=== PATIENT | male | born 1950 | race Two or more races ===

== ENCOUNTER 2016-06-09 05:22 | Inpatient (IN) | END 2016-06-15 21:15 | DRG 455 | DX: M51.37 Other intervertebral disc degeneration, lumbosacral region (principal); I10 Essential (primary) hypertension; E11.9 Type 2 diabetes mellitus without complications; Z86.73 Personal history of transient ischemic attack (TIA), and cerebral infarction without residual deficits; Z85.038 Personal history of other malignant neoplasm of large intestine; M43.16 Spondylolisthesis, lumbar region; K21.9 Gastro-esophageal reflux disease without esophagitis ==

== ENCOUNTER 2016-06-15 18:00 | Inpatient (IN) | payer OTHER ==
[~2016-06-15] VITALS: Ht 165.1 cm; Wt 90.2 kg
[~2016-06-15 18:00] MED LIST: ASPI-664 PO; ATOR40TA68 PO; HUMULIN SQ; HYDR50TA3 PO; LOSA50TA2 PO; LOSA50TA6 PO; METF1000 PO; METF500T PO; METO25TA7 PO; OMEP20CA16 PO; PANT40TA4 PO; REGULAR INSULIN; TRAM50TA2 PO
[2016-06-15 21:25] VITALS: Ht 165.1 cm; Wt 90.2 kg
[2016-06-15 21:30] VITALS: BP 126/70; RESP 20
[2016-06-15] MEDS: DOCUSATE SODIUM 100 MG CAP PO SCH (22:00)
[2016-06-15] MEDS: ATORVASTATIN 40 MG TAB PO SCH (22:00)
[2016-06-15] MEDS ORDERED: NALOXONE (0.4 MG/ML) INJ IV PRN (22:30)
[2016-06-15] MEDS ORDERED: ONDANSETRON 4 MG INJ IV PRN (22:30)
[2016-06-15] MEDS ORDERED: DEXTROSE 50% 50 ML SYRINGE IV PRN ×2 (22:30)
[2016-06-15] MEDS ORDERED: GLUCOSE GEL 15 GRAM TUBE PO PRN ×2 (22:30)
[2016-06-15] MEDS ORDERED: GLUCOSE GEL 15 GRAM TUBE BUCCAL PRN (22:30)
[2016-06-15] MEDS ORDERED: GLUCAGON 1 MG INJ IM PRN (22:30)
[2016-06-15] MEDS ORDERED: NACL 0.9% 3 ML SYG IV SCH (22:30)
[2016-06-15] MEDS ORDERED: PROCHLORPERAZINE 10 MG TAB PO PRN (22:30)
[2016-06-15] MEDS: METOPROLOL (XL) 25 MG TAB PO SCH (22:30)
[2016-06-15] MEDS: OXYCODONE/ACETAMINOPHEN (5/325) TAB PO PRN (23:14)
[2016-06-15] MEDS: INSULIN GLARGINE [LANtus] 3 ML PEN SC SCH (23:15)
[2016-06-15] MEDS ORDERED: BISACODYL 10 MG SUPP PR PRN (23:30)
[2016-06-15] MEDS ORDERED: LACTULOSE 30ML CUP PO PRN (23:30)
[2016-06-15] MEDS ORDERED: ACETAMINOPHEN 325 MG TAB PO PRN (23:30)
[2016-06-15] MEDS ORDERED: MAGNESIUM HYDROXIDE 30ML CUP PO PRN (23:30)
[2016-06-16 00:36] LABS: ADD UMIC NO; URINE BILIRUBIN (Dip) NEGATIVE (NEGATIVE); URINE BLOOD (Dip) NEGATIVE (NEGATIVE); URINE COLOR LT. YELLOW (YELLOW); URINE GLUCOSE (Dip) NEGATIVE (NEGATIVE); URINE KETONES (Dip) NEGATIVE (NEGATIVE); URINE LEUKOCYTE ESTERASE (Dip) NEGATIVE (NEGATIVE); URINE NITRITE (Dip) NEGATIVE (NEGATIVE); URINE TOTAL PROTEIN (Dip) NEGATIVE (NEGATIVE); URINE UROBILINOGEN (Dip) 1.0 E.U./dL (0.1-1.0)
[2016-06-16] MEDS: ACCUCHECK AT 2AM (Patients on SS coverage) XX SCH (02:00)
[2016-06-16] MEDS: OXYCODONE/ACETAMINOPHEN (5/325) TAB PO PRN ×5 (03:00→23:20)
[2016-06-16] MEDS: PANTOPRAZOLE (EC) 40 MG TAB PO SCH (06:33)
[2016-06-16 07:18] LABS: BASOPHILS % 0.3 % (0.0-2.0); EOSINOPHILS # 0.3 10^3/ul (0.0-0.5); EOSINOPHILS % 3.1 % (0.0-7.0); HEMATOCRIT 36.1 % (42.0-52.0); HEMOGLOBIN 12.4 g/dl (14.0-18.0); LYMPHOCYTES # 1.4 10^3/ul (0.8-2.9); LYMPHOCYTES % 13.3 % (15.0-51.0); MEAN CORPUSCULAR HGB CONC 34.2 g/dl (32.0-37.0); MEAN CORPUSCULAR VOLUME 93.5 fl (82.0-101.0); MEAN PLATELET VOLUME 6.6 fl (7.4-10.4); MONOCYTE # 0.8 10^3/ul (0.3-0.9); MONOCYTES % 7.8 % (0.0-11.0); NEUTROPHIL # 8.2 10^3/ul (1.6-7.5); NEUTROPHILS % 75.5 % (39.0-77.0); PLATELET COUNT 417 10^3/UL (140-440); RED BLOOD COUNT 3.86 10^6/ul (4.70-6.10); RED CELL DISTRIBUTION WIDTH 13.6 % (11.5-14.5); UNCORRECTED WBC 10.8 10^3/ul (4.8-10.8); WHITE BLOOD COUNT 10.8 10^3/ul (4.8-10.8)
[2016-06-16 07:21] LABS: CONDITION 1
[2016-06-16 07:35] LABS: ALBUMIN 3.2 g/dl (3.3-4.9)
[2016-06-16] MEDS: Insulin NOVOLOG SS MODERATE Algorithm (SS with meals and bedtime) SC SCH ×4 (07:35→21:00)
[2016-06-16 07:36] LABS: POTASSIUM 4.6 mmol/L (3.5-5.1)
[2016-06-16 07:38] LABS: ALBUMIN/GLOBULIN RATIO 1.06; BILIRUBIN,INDIRECT 0.6 mg/dl (0-1.1); BILIRUBIN,TOTAL 0.6 mg/dl (0.2-1.3); CREATININE 0.66 mg/dl (0.61-1.24); TOTAL PROTEIN 6.2 g/dl (6.1-8.1)
[2016-06-16 07:39] LABS: CALCIUM 9.2 mg/dl (8.4-10.2)
[2016-06-16 07:41] VITALS: BP 126/58; RESP 18
[2016-06-16] MEDS: metFORMIN 500 MG TAB PO SCH ×2 (08:02→17:27)
[2016-06-16] MEDS: DOCUSATE SODIUM 100 MG CAP PO SCH ×2 (08:05→20:34)
[2016-06-16] MEDS: INSULIN ASPART [NOVOLOG] 3 ML PEN SC SCH ×3 (08:05→17:29)
[2016-06-16] MEDS: LOSARTAN 50 MG TAB PO SCH (08:47)
[2016-06-16] MEDS: HYDROCHLOROTHIAZIDE 12.5 MG CAP PO SCH (08:47)
[2016-06-16] MEDS: METOPROLOL (XL) 25 MG TAB PO SCH ×2 (08:48→20:35)
[2016-06-16] MEDS: INSULIN GLARGINE [LANtus] 3 ML PEN SC SCH ×2 (09:34→20:48)
[2016-06-16] MEDS: ACCUCHECK XX SCH ×3 (09:35→19:35)
--- NOTE | 2016-06-16 11:14 | CONS ---
DATE OF ADMISSION: 06/15/2016 DATE OF CONSULTATION: 06/16/2016 REHABILITATION POST ADMISSION PHYSICIAN EVALUATION REHABILITATION IMPAIRMENT CATEGORY: Lumbar radiculopathy, spondylolisthesis, status post lumbar fusion and laminectomy. ACTIVE COMORBIDITIES: 1. History of right rotator cuff impairment. 2. History of bilateral knee surgeries. 3. History of partial colectomy for colon cancer. 4. History of cerebrovascular accident. 5. Type 2 diabetes mellitus. 6. Hypertension. 7. Impairments in self-care and mobility. HISTORY OF PRESENT ILLNESS: The patient is a pleasant 65-year-old gentleman who had been having longstanding low back pain despite conservative measures. The patient was noting worsening functional status and ultimately underwent lumbar fusion and laminectomy on 06/09/2016. The patient's hospital course has been notable for significant pain, and significant impairments in self-care and mobility as compared to baseline. The patient has now been cleared to transfer to the rehabilitation unit for comprehensive interdisciplinary rehab care. FUNCTIONAL HISTORY: Prior to recent events, he was independent in self-care tasks and mobility. Currently, the patient requires moderate assist for self- care activities and moderate assist for mobility tasks. I have reviewed the preadmission screen and the patient's current functional status is consistent with the preadmission screen. SOCIAL HISTORY: The patient reports living at home and hopes to return there upon discharge. PAST MEDICAL HISTORY: 1. Hypertension. 2. Diabetes mellitus. 3. History of right shoulder surgery for rotator cuff tear. 4. History of bilateral knee surgery. 5. History of partial colectomy for colon carcinoma. CURRENT MEDICATIONS: 1. Lipitor 40 mg p.o. at bedtime. 2. Insulin sliding scale. 3. Hydrochlorothiazide 12.5 mg p.o. daily. 4. Lantus 18 units subcutaneous b.i.d. 5. Cozaar 50 mg p.o. daily. 6. Glucophage 1000 mg p.o. b.i.d. 7. Toprol-XL 25 mg p.o. b.i.d. 8. Percocet 1 to 2 tabs p.o. q.4h. 9. Protonix 40 mg p.o. daily. ALLERGIES: CODEINE. PHYSICAL EXAMINATION: VITAL SIGNS: The patient is currently afebrile with stable vital signs. HEENT: The extraocular motions are intact. Oropharynx is clear. NECK: Supple. LUNGS: Clear anteriorly. CARDIAC: S1, S2. ABDOMEN: Soft, nontender, positive bowel sounds. NEUROLOGIC: He is awake and alert and oriented x3. He can follow simple 1-step commands. Cranial nerves are grossly intact. He demonstrates antigravity strength in bilateral upper extremity and lower extremity. PLAN: The patient has been admitted for comprehensive interdisciplinary acute rehab and is anticipated to tolerate 3 hours of daily therapy in divided doses for at least 5/7 days a week. The treatment plan will include: 1. Physical therapy to focus on bed mobility, transfers, and household ambulation with the goal of having the patient reach a standby assist level. 2. Occupational therapy to focus on hygiene, grooming, dressing, bathing, and toileting activities with the goal of having the patient reach standby assist level. 3. Rehabilitation nursing for carryover of therapeutic interventions, the goal of continent of bowel and bladder, and the goal of pain adequately managed on oral medications. REHABILITATION BARRIER: Pain. INTERVENTION FOR BARRIER: Comprehensive interdisciplinary approach. ESTIMATED LENGTH OF STAY: 10 days. DISPOSITION GOAL: Home. I acknowledge that I have performed a full physical examination on this patient within 24 hours of admission to the rehabilitation unit. I believe the patient is a good candidate for comprehensive interdisciplinary rehab care and is anticipated to make reasonable goals in a reasonable period of time as outlined above. Dictated By: BASHIR LYNN/CARRI Conf#: [id number] DID#: [id number] MTDD
[2016-06-16] MEDS: oxyCODONE (CR) 10 MG TAB [oxyCONTIN] PO SCH ×2 (13:10→20:34)
[2016-06-16 20:00] VITALS: BP 111/58; PULSE 69; RESP 18
[2016-06-16] MEDS: ATORVASTATIN 40 MG TAB PO SCH (20:33)
[2016-06-16] MEDS: SENNA TAB PO SCH (20:34)
[2016-06-17] MEDS: ACCUCHECK AT 2AM (Patients on SS coverage) XX SCH (02:00)
[2016-06-17] MEDS: PANTOPRAZOLE (EC) 40 MG TAB PO SCH (06:11)
[2016-06-17 06:14] VITALS: BP 141/72; PULSE 73
[2016-06-17] MEDS: OXYCODONE/ACETAMINOPHEN (5/325) TAB PO PRN ×3 (06:14→20:15)
[2016-06-17 07:30] VITALS: BP 123/61; RESP 18
[2016-06-17] MEDS: Insulin NOVOLOG SS MODERATE Algorithm (SS with meals and bedtime) SC SCH ×4 (07:35→20:25)
[2016-06-17] MEDS: metFORMIN 500 MG TAB PO SCH ×2 (08:33→17:43)
[2016-06-17] MEDS: DOCUSATE SODIUM 100 MG CAP PO SCH ×2 (08:33→20:13)
[2016-06-17] MEDS: oxyCODONE (CR) 10 MG TAB [oxyCONTIN] PO SCH ×2 (08:35→12:57)
[2016-06-17] MEDS: LOSARTAN 50 MG TAB PO SCH (08:36)
[2016-06-17] MEDS: METOPROLOL (XL) 25 MG TAB PO SCH ×2 (08:37→20:14)
[2016-06-17] MEDS: HYDROCHLOROTHIAZIDE 12.5 MG CAP PO SCH (08:37)
[2016-06-17] MEDS: INSULIN ASPART [NOVOLOG] 3 ML PEN SC SCH ×3 (08:39→17:41)
[2016-06-17] MEDS: INSULIN GLARGINE [LANtus] 3 ML PEN SC SCH ×2 (08:46→20:25)
[2016-06-17] MEDS: ACCUCHECK XX SCH ×3 (10:22→19:28)
--- NOTE | 2016-06-17 12:53 | CONS ---
Date/Time of Note Date/Time of Note DATE: 06/17/16 TIME: 12:51 Consult Date/Type/Reason Admit Date/Time Jun 15, 2016 at 21:58 Initial Consult Date Subjective Pain under better control Objective pulm- cta min assist Vital Signs Date Time Temp Pulse Resp B/P Pulse Ox O2 Delivery O2 Flow Rate FiO2 06/17/16 06:14 73 141/72 06/16/16 20:00 97.8 18 99 Room Air Intake and Output 06/16/16 06/16/16 06/17/16 15:00 23:00 07:00 Intake Total 720 ml 240 ml 300 ml Output Total 500 ml 350 ml Balance 220 ml 240 ml -50 ml Results/Medications Result Diagram: 06/16/16 0640 06/16/16 0640 Results 24 hrs Laboratory Tests Test 06/16/16 16:45 06/16/16 18:53 06/16/16 20:41 06/16/16 22:10 Bedside Glucose 172 131 81 128 Test 06/17/16 07:19 06/17/16 12:11 Bedside Glucose 109 139 Medications Current Medications Diagnostic Test (Pha) (Accucheck) 1 ea 02 XX ; Start 06/16/16 at 02:00 Atorvastatin Calcium (Lipitor) 40 mg DAILY@21 PO Last administered on 20:33; Admin Dose 40 MG; Start 06/15/16 at 22:00 Miscellaneous Information 1 ea NOTE XX ; Start 06/15/16 at 22:30 Glucose (Glutose) 15 gm Q15M PRN PO DECREASED GLUCOSE; Start 06/15/16 at 22:30 Glucose (Glutose) 22.5 gm Q15M PRN PO DECREASED GLUCOSE; Start 06/15/16 at 22: 30 Dextrose (D50w Syringe) 25 ml Q15M PRN IV DECREASED GLUCOSE; Start 06/15/16 at 22:30 Dextrose (D50w Syringe) 50 ml Q15M PRN IV DECREASED GLUCOSE; Start 06/15/16 at 22:30 Glucagon (Glucagen) 1 mg Q15M PRN IM DECREASED GLUCOSE; Start 06/15/16 at 22:30 Glucose (Glutose) 15 gm Q15M PRN BUCCAL DECREASED GLUCOSE; Start 06/15/16 at 22 :30 Docusate Sodium (Colace) 100 mg BID PO Last administered on 06/17/16 08:33; Admin Dose 100 MG; Start 06/15/16 at 22:00 Hydrochlorothiazide (Hydrochlorothiazide) 12.5 mg DAILY PO Last administered on 06/17/16 08:37; Admin Dose 12.5 MG; Start 06/16/16 at 09:00 Insulin Glargine (Lantus) 18 unit Q12 SC Last administered on 06/17/16 08:46; Admin Dose 18 UNIT; Start 06/15/16 at 22:30 Losartan Potassium (Cozaar) 50 mg DAILY PO Last administered on 06/17/16 08:36 ; Admin Dose 50 MG; Start 06/16/16 at 09:00 Metoprolol Succinate (Toprol Xl) 25 mg BID PO Last administered on 06/17/16 08 :37; Admin Dose 25 MG; Start 06/15/16 at 22:30 Naloxone HCl (Narcan) 0.2 mg Q2M PRN IV DECREASED REPIRATORY RATE; Start at 22:30 Ondansetron HCl (Zofran Inj) 4 mg Q6H PRN IV NAUSEA AND/OR VOMITING; Start at 22:30 Oxycodone/ Acetaminophen (Percocet (5/ 325)) 1 tab Q4H PRN PO PAIN; Start 06/15 at 22:30 Oxycodone/ Acetaminophen (Percocet (5/ 325)) 2 tab Q3H PRN PO PAIN Last administered on 06/17/16 06:14; Admin Dose 2 TAB; Start 06/15/16 at 22:30 Pantoprazole (Protonix Tab) 40 mg DAILY@06 PO Last administered on 06/17/16 06 :11; Admin Dose 40 MG; Start 06/16/16 at 06:00 Prochlorperazine (Compazine) 10 mg Q4H PRN PO NAUSEA AND/OR VOMITING; Start at 22:30 Senna (Senokot) 1 tab HS PO Last administered on 06/16/16 20:34; Admin Dose 1 TAB; Start 06/16/16 at 21:00 Acetaminophen (Tylenol Tab) 650 mg Q4H PRN PO PAIN AND OR ELEVATED TEMP; Start 06/15/16 at 23:30 Bisacodyl (Dulcolax Supp) 10 mg DAILY PRN [place] CONSTIPATION; Start 06/15/16 at 23 :30 Magnesium Hydroxide (Milk Of Mag) 30 ml BID PRN PO CONSTIPATION; Start at 23:30 Lactulose (Enulose) 10 gm DAILY PRN PO CONSTIPATION; Start 06/15/16 at 23:30 Influenza Virus Vaccine (Fluzone) 0.5 ml ONCE ONCE IM* ; Start 06/18/16 at 09:00 ; Stop 06/18/16 at 09:01 Oxycodone HCl (Oxycontin) 10 mg BID@08,13 PO Last administered on 06/17/16t 08: 35; Admin Dose 10 MG; Start 06/17/16 at 08:00 Assessment/Plan Additional Assessment/Plan Rehab- Lumbar radiculopathy, spondylolisthesis, status post lumbar fusion and laminectomy. Continue rehab program History of right rotator cuff impairment. History of bilateral knee surgeries. History of partial colectomy for colon cancer. History of cerebrovascular accident. Type 2 diabetes mellitus. Hypertension. BASHIR JOY MD Jun 17, 2016 12:53
[2016-06-17] MEDS: SENNA TAB PO SCH (20:13)
[2016-06-17] MEDS: ATORVASTATIN 40 MG TAB PO SCH (20:13)
[2016-06-17 21:40] VITALS: BP 123/73; RESP 18
[2016-06-18] MEDS: OXYCODONE/ACETAMINOPHEN (5/325) TAB PO PRN ×3 (01:31→19:44)
[2016-06-18] MEDS: ACCUCHECK AT 2AM (Patients on SS coverage) XX SCH (01:31)
[2016-06-18] MEDS: PANTOPRAZOLE (EC) 40 MG TAB PO SCH (05:34)
[2016-06-18 05:36] VITALS: BP 121/73; PULSE 67
[2016-06-18] MEDS: INSULIN ASPART [NOVOLOG] 3 ML PEN SC SCH ×3 (07:34→17:25)
[2016-06-18] MEDS: Insulin NOVOLOG SS MODERATE Algorithm (SS with meals and bedtime) SC SCH ×4 (07:35→21:00)
[2016-06-18 07:42] VITALS: BP 120/62; RESP 18
[2016-06-18] MEDS: HYDROCHLOROTHIAZIDE 12.5 MG CAP PO SCH (08:16)
[2016-06-18] MEDS: METOPROLOL (XL) 25 MG TAB PO SCH ×2 (08:16→21:03)
[2016-06-18] MEDS: oxyCODONE (CR) 10 MG TAB [oxyCONTIN] PO SCH ×2 (08:17→12:12)
[2016-06-18] MEDS: DOCUSATE SODIUM 100 MG CAP PO SCH ×2 (08:17→21:03)
[2016-06-18] MEDS: LOSARTAN 50 MG TAB PO SCH (08:17)
[2016-06-18] MEDS: metFORMIN 500 MG TAB PO SCH ×2 (08:17→17:24)
[2016-06-18] MEDS: INSULIN GLARGINE [LANtus] 3 ML PEN SC SCH ×2 (08:58→21:10)
[2016-06-18] MEDS ORDERED: INFLUENZA VIRUS VACCINE 0.5 ML (DISPENSING) IM* ONE (09:00)
[2016-06-18] MEDS: ACCUCHECK XX SCH (09:55)
--- NOTE | 2016-06-18 11:08 | CONS ---
Date/Time of Note Date/Time of Note DATE: 06/18/16 TIME: 11:08 Consult Date/Type/Reason Admit Date/Time Jun 15, 2016 at 21:58 Subjective Pain under good control Objective pulm- cta cga ambulation Vital Signs Date Time Temp Pulse Resp B/P Pulse Ox O2 Delivery O2 Flow Rate FiO2 06/18/16 07:42 98.3 65 18 120/62 96 06/16/16 20:00 Room Air Intake and Output 06/17/16 06/17/16 06/18/16 14:59 22:59 06:59 Intake Total 860 ml 300 ml Output Total 850 ml 880 ml 400 ml Balance -850 ml -20 ml -100 ml Results/Medications Result Diagram: 06/16/16 0640 06/16/16 0640 Results 24 hrs Laboratory Tests Test 06/17/16 12:11 06/17/16 14:33 06/17/16 16:56 06/17/16 19:11 Bedside Glucose 139 176 146 226 H Test 06/17/16 20:16 06/18/16 01:29 06/18/16 07:20 06/18/16 09:48 Bedside Glucose 223 H 125 103 188 Medications Current Medications Diagnostic Test (Pha) (Accucheck) 1 ea 02 XX Last administered on 06/18/16t 01: 31; Admin Dose 1 EA; Start 06/16/16 at 02:00 Atorvastatin Calcium (Lipitor) 40 mg DAILY@21 PO Last administered on t 20:13; Admin Dose 40 MG; Start 06/15/16 at 22:00 Miscellaneous Information 1 ea NOTE XX ; Start 06/15/16 at 22:30 Glucose (Glutose) 15 gm Q15M PRN PO DECREASED GLUCOSE; Start 06/15/16 at 22:30 Glucose (Glutose) 22.5 gm Q15M PRN PO DECREASED GLUCOSE; Start 06/15/16 at 22: 30 Dextrose (D50w Syringe) 25 ml Q15M PRN IV DECREASED GLUCOSE; Start 06/15/16 at 22:30 Dextrose (D50w Syringe) 50 ml Q15M PRN IV DECREASED GLUCOSE; Start 06/15/16 at 22:30 Glucagon (Glucagen) 1 mg Q15M PRN IM DECREASED GLUCOSE; Start 06/15/16 at 22:30 Glucose (Glutose) 15 gm Q15M PRN BUCCAL DECREASED GLUCOSE; Start 06/15/16 at 22 :30 Docusate Sodium (Colace) 100 mg BID PO Last administered on 06/18/16 08:17; Admin Dose 100 MG; Start 06/15/16 at 22:00 Hydrochlorothiazide (Hydrochlorothiazide) 12.5 mg DAILY PO Last administered on 06/18/16 08:16; Admin Dose 12.5 MG; Start 06/16/16 at 09:00 Insulin Glargine (Lantus) 18 unit Q12 SC Last administered on 06/18/16 08:58; Admin Dose 18 UNIT; Start 06/15/16 at 22:30 Losartan Potassium (Cozaar) 50 mg DAILY PO Last administered on 06/18/16 08:17 ; Admin Dose 50 MG; Start 06/16/16 at 09:00 Metoprolol Succinate (Toprol Xl) 25 mg BID PO Last administered on 06/18/16 08 :16; Admin Dose 25 MG; Start 06/15/16 at 22:30 Naloxone HCl (Narcan) 0.2 mg Q2M PRN IV DECREASED REPIRATORY RATE; Start at 22:30 Ondansetron HCl (Zofran Inj) 4 mg Q6H PRN IV NAUSEA AND/OR VOMITING; Start at 22:30 Oxycodone/ Acetaminophen (Percocet (5/ 325)) 1 tab Q4H PRN PO PAIN Last administered on 06/17/16 14:29; Admin Dose 1 TAB; Start 06/15/16 at 22:30 Oxycodone/ Acetaminophen (Percocet (5/ 325)) 2 tab Q3H PRN PO PAIN Last administered on 06/18/16 05:36; Admin Dose 2 TAB; Start 06/15/16 at 22:30 Pantoprazole (Protonix Tab) 40 mg DAILY@06 PO Last administered on 06/18/16 05 :34; Admin Dose 40 MG; Start 06/16/16 at 06:00 Prochlorperazine (Compazine) 10 mg Q4H PRN PO NAUSEA AND/OR VOMITING; Start at 22:30 Senna (Senokot) 1 tab HS PO Last administered on 06/17/16 20:13; Admin Dose 1 TAB; Start 06/16/16 at 21:00 Acetaminophen (Tylenol Tab) 650 mg Q4H PRN PO PAIN AND OR ELEVATED TEMP; Start 06/15/16 at 23:30 Bisacodyl (Dulcolax Supp) 10 mg DAILY PRN [place] CONSTIPATION; Start 06/15/16 at 23 :30 Magnesium Hydroxide (Milk Of Mag) 30 ml BID PRN PO CONSTIPATION; Start at 23:30 Lactulose (Enulose) 10 gm DAILY PRN PO CONSTIPATION; Start 06/15/16 at 23:30 Oxycodone HCl (Oxycontin) 10 mg BID@08,13 PO Last administered on 06/18/16t 08: 17; Admin Dose 10 MG; Start 06/17/16 at 08:00 Assessment/Plan Additional Assessment/Plan Rehab- Lumbar radiculopathy, spondylolisthesis, status post lumbar fusion and laminectomy. Progressing well with rehab program, continue treatment plan History of right rotator cuff impairment. History of bilateral knee surgeries. History of partial colectomy for colon cancer. History of cerebrovascular accident. Type 2 diabetes mellitus. Hypertension. BASHIR JOY MD Jun 18, 2016 11:08
--- NOTE | 2016-06-18 17:18 | HP ---
Date/Time of Note Date/Time of Note DATE: 06/18/16 TIME: 17:14 Assessment/Plan VTE Prophylaxis VTE Prophylaxis Intervention: LMWH Lines/Catheters Urinary Cath still in place: No Assessment/Plan Problems: (1) Status post lumbar and lumbosacral fusion by anterior technique Status: Acute Comment: He is rehabilitating after surgery and progressing on the rehabilitation unit. There is been no evidence of untoward complications. Physical medicine rehab will help guide (2) Gastroesophageal reflux disease Status: Chronic Comment: Stable and controlled Qualifiers: Esophagitis presence: without esophagitis Qualified Code: K21.9 - Gastroesophageal reflux disease without esophagitis (3) Hyperlipidemia associated with type 2 diabetes mellitus Status: Chronic Comment: On statin therapy and stable no evidence of endorgan damage (4) Diabetes mellitus type 2 in obese Status: Chronic Comment: Well-controlled on current regimen (5) Essential hypertension Status: Chronic Comment: Well-controlled HPI/ROS Admit Date/Time Admit Date/Time Jun 15, 2016 at 21:58 Hx of Present Illness 65-year-old gentleman status post major lumbar spinal surgery for rehabilitation transferred from the inpatient service to the acute rehabilitation unit ROS Constitutional: no complaints Eyes: no complaints ENT: no complaints Respiratory: no complaints Cardiovascular: no complaints Gastrointestinal: no complaints Genitourinary: no complaints Musculoskeletal: back pain Skin: no complaints Neurologic: other (Some issues with balance and lower extremity weakness) Endocrine: no complaints Lymphatic: no complaints PMH/Family/Social Past Medical History Medical History: cancer (History of colon cancer), diabetes (Diabetes mellitus type 2), GERD, high cholesterol, hypertension Past Surgical History Immediately status post anterior lumbar spinal fusion Past Surgical Hx: bowel resection (Status post hemicolectomy) Family History Significant Family History: heart disease, diabetes, hypertension Social History Alcohol Use: none Smoking Status: Never smoker Drug Use: none Exam/Review of Systems Vital Signs Vitals Vital Signs Date Time Temp Pulse Resp B/P Pulse Ox O2 Delivery O2 Flow Rate FiO2 06/18/16 07:42 98.3 65 18 120/62 96 06/16/16 20:00 Room Air Intake and Output 06/17/16 06/17/16 06/18/16 15:00 23:00 07:00 Intake Total 860 ml 300 ml Output Total 850 ml 880 ml 400 ml Balance -850 ml -20 ml -100 ml Exam Constitutional: alert, oriented Psych: no complaints Head: atraumatic, normocephalic Eyes: EOMI, nl conjunctiva, nl lids, nl sclera ENMT: nl external ears & nose, nl lips & teeth, nl nasal mucosa & septum Neck: non-tender, supple Respiratory: clear to auscultation, normal air movement Cardiovascular: nl pulses, regular rate and rhythm Gastrointestinal: nl liver, spleen, non-tender, other (Anterior bandage just to the side of the umbilicus), soft Musculoskeletal: nl extremities to inspection, nl gait and stance Labs Result Diagram: 06/16/16 0640 06/16/16 0640 Medications Medications Current Medications Diagnostic Test (Pha) (Accucheck) 1 ea 02 XX Last administered on 06/18/16 01: 31; Admin Dose 1 EA; Start 06/16/16 at 02:00 Atorvastatin Calcium (Lipitor) 40 mg DAILY@21 PO Last administered on 20:13; Admin Dose 40 MG; Start 06/15/16 at 22:00 Miscellaneous Information 1 ea NOTE XX ; Start 06/15/16 at 22:30 Glucose (Glutose) 15 gm Q15M PRN PO DECREASED GLUCOSE; Start 06/15/16 at 22:30 Glucose (Glutose) 22.5 gm Q15M PRN PO DECREASED GLUCOSE; Start 06/15/16 at 22: 30 Dextrose (D50w Syringe) 25 ml Q15M PRN IV DECREASED GLUCOSE; Start 06/15/16 at 22:30 Dextrose (D50w Syringe) 50 ml Q15M PRN IV DECREASED GLUCOSE; Start 06/15/16 at 22:30 Glucagon (Glucagen) 1 mg Q15M PRN IM DECREASED GLUCOSE; Start 06/15/16 at 22:30 Glucose (Glutose) 15 gm Q15M PRN BUCCAL DECREASED GLUCOSE; Start 06/15/16 at 22 :30 Docusate Sodium (Colace) 100 mg BID PO Last administered on 06/18/16 08:17; Admin Dose 100 MG; Start 06/15/16 at 22:00 Hydrochlorothiazide (Hydrochlorothiazide) 12.5 mg DAILY PO Last administered on 06/18/16 08:16; Admin Dose 12.5 MG; Start 06/16/16 at 09:00 Insulin Glargine (Lantus) 18 unit Q12 SC Last administered on 06/18/16 08:58; Admin Dose 18 UNIT; Start 06/15/16 at 22:30 Losartan Potassium (Cozaar) 50 mg DAILY PO Last administered on 06/18/16 08:17 ; Admin Dose 50 MG; Start 06/16/16 at 09:00 Metoprolol Succinate (Toprol Xl) 25 mg BID PO Last administered on 06/18/16 08 :16; Admin Dose 25 MG; Start 06/15/16 at 22:30 Naloxone HCl (Narcan) 0.2 mg Q2M PRN IV DECREASED REPIRATORY RATE; Start at 22:30 Ondansetron HCl (Zofran Inj) 4 mg Q6H PRN IV NAUSEA AND/OR VOMITING; Start at 22:30 Oxycodone/ Acetaminophen (Percocet (5/ 325)) 1 tab Q4H PRN PO PAIN Last administered on 06/17/16 14:29; Admin Dose 1 TAB; Start 06/15/16 at 22:30 Oxycodone/ Acetaminophen (Percocet (5/ 325)) 2 tab Q3H PRN PO PAIN Last administered on 06/18/16 05:36; Admin Dose 2 TAB; Start 06/15/16 at 22:30 Pantoprazole (Protonix Tab) 40 mg DAILY@06 PO Last administered on 06/18/16 05 :34; Admin Dose 40 MG; Start 06/16/16 at 06:00 Prochlorperazine (Compazine) 10 mg Q4H PRN PO NAUSEA AND/OR VOMITING; Start at 22:30 Senna (Senokot) 1 tab HS PO Last administered on 06/17/16 20:13; Admin Dose 1 TAB; Start 06/16/16 at 21:00 Acetaminophen (Tylenol Tab) 650 mg Q4H PRN PO PAIN AND OR ELEVATED TEMP; Start 06/15/16 at 23:30 Bisacodyl (Dulcolax Supp) 10 mg DAILY PRN [place] CONSTIPATION; Start 06/15/16 at 23 :30 Magnesium Hydroxide (Milk Of Mag) 30 ml BID PRN PO CONSTIPATION; Start at 23:30 Lactulose (Enulose) 10 gm DAILY PRN PO CONSTIPATION; Start 06/15/16 at 23:30 Oxycodone HCl (Oxycontin) 10 mg BID@08,13 PO Last administered on 06/18/16t 12: 12; Admin Dose 10 MG; Start 06/17/16 at 08:00 TORRES KEY MD Jun 18, 2016 17:18
[2016-06-18 19:30] VITALS: BP 123/63; PULSE 71
[2016-06-18] MEDS: ATORVASTATIN 40 MG TAB PO SCH (21:01)
[2016-06-18] MEDS: SENNA TAB PO SCH (21:03)
[2016-06-18 22:00] VITALS: BP 127/58; RESP 18
[2016-06-19] MEDS: ACCUCHECK AT 2AM (Patients on SS coverage) XX SCH (02:00)
[2016-06-19] MEDS: OXYCODONE/ACETAMINOPHEN (5/325) TAB PO PRN ×4 (03:51→20:38)
[2016-06-19] MEDS: PANTOPRAZOLE (EC) 40 MG TAB PO SCH (06:56)
[2016-06-19 07:30] VITALS: BP 128/62; RESP 18
[2016-06-19] MEDS: Insulin NOVOLOG SS MODERATE Algorithm (SS with meals and bedtime) SC SCH ×4 (07:35→21:00)
[2016-06-19] MEDS: DOCUSATE SODIUM 100 MG CAP PO SCH ×2 (09:03→20:38)
[2016-06-19] MEDS: metFORMIN 500 MG TAB PO SCH ×2 (09:05→17:15)
[2016-06-19] MEDS: LOSARTAN 50 MG TAB PO SCH (09:06)
[2016-06-19] MEDS: HYDROCHLOROTHIAZIDE 12.5 MG CAP PO SCH (09:07)
[2016-06-19] MEDS: METOPROLOL (XL) 25 MG TAB PO SCH ×2 (09:07→20:43)
[2016-06-19] MEDS: oxyCODONE (CR) 10 MG TAB [oxyCONTIN] PO SCH ×2 (09:09→12:18)
[2016-06-19] MEDS: INSULIN ASPART [NOVOLOG] 3 ML PEN SC SCH ×3 (09:11→17:17)
[2016-06-19] MEDS: INSULIN GLARGINE [LANtus] 3 ML PEN SC SCH ×2 (09:12→20:45)
--- NOTE | 2016-06-19 13:13 | PN ---
Date/Time of Note Date/Time of Note DATE: 06/19/16 TIME: 13:09 Assessment/Plan VTE Prophylaxis VTE Prophylaxis Intervention: ambulation Lines/Catheters Urinary Cath still in place: No Assessment/Plan Problems: (1) Essential hypertension Status: Chronic Comment: Controlled, cont. current regimen (2) Diabetes mellitus type 2 in obese Status: Chronic Comment: Excellent glycemic control. Cont. lantus 18 qhs and Novolog 9 qac plus metformin 1 g bid (3) Status post lumbar and lumbosacral fusion by anterior technique Status: Acute Comment: Pain control regimen changed yesterday to include long-acting pain reliever w/ oxycontin. Pt. agrees to wait and reevaluate today to see if this is more effective and if he will be able to do therapy without severely exacerbating pain. Will reeval tomorrow. Subjective 24 Hr Interval Summary Constitutional: improved, no complaints Respiratory: no complaints Cardiovascular: no complaints Gastrointestinal: no complaints Genitourinary: no complaints Musculoskeletal: back pain (pain mostly controlled but worsens during therapy. Feels he is not getting adequate pain relief in advance of PT to prevent pain exacerbations) Neurologic: no complaints Exam/Review of Systems Vital Signs Vitals VS - Last 72 Hours, by Label Date Time Temp Pulse Resp B/P Pulse Ox O2 Delivery O2 Flow Rate FiO2 06/18/16 22:00 98.3 69 18 127/58 96 06/18/16 19:30 71 123/63 06/18/16 07:42 98.3 65 18 120/62 96 06/18/16 05:36 67 121/73 06/17/16 21:40 98.6 75 18 123/73 93 06/17/16 07:30 97.8 68 18 123/61 96 06/17/16 06:14 73 141/72 06/16/16 20:00 97.8 69 18 111/58 99 Room Air Vital Signs Date Time Temp Pulse Resp B/P Pulse Ox O2 Delivery O2 Flow Rate FiO2 06/18/16 22:00 98.3 69 18 127/58 96 06/16/16 20:00 Room Air Intake and Output 06/18/16 06/18/16 06/19/16 15:00 23:00 07:00 Intake Total 720 ml 360 ml Output Total 800 ml Balance -80 ml 360 ml Exam Constitutional: alert, oriented, well developed Respiratory: clear to auscultation, normal air movement Cardiovascular: nl pulses, regular rate and rhythm, No edema, No murmurs/extra sounds, No rub Gastrointestinal: bowel sounds, nl liver, spleen, non-tender, soft, No mass, No rebound or guarding Musculoskeletal: nl extremities to inspection Extremities: normal pulses, No clubbing, No cyanosis, No edema Neurological: OUTSOLE FLEXER II-XII intact, nl mental status, nl speech, nl strength Additional Comments Bedside Glucose - 72 Hours Test 06/16/16 16:45 06/16/16 18:53 06/16/16 20:41 06/16/16 22:10 Bedside Glucose 172mg/dL (70-220) 131mg/dL (70-220) 81mg/dL (70-220) 128mg/dL (70-220) Test 06/17/16 07:19 06/17/16 12:11 06/17/16 14:33 06/17/16 16:56 Bedside Glucose 109mg/dL (70-220) 139mg/dL (70-220) 176mg/dL (70-220) 146mg/dL (70-220) Test 06/17/16 19:11 06/17/16 20:16 06/18/16 01:29 06/18/16 07:20 Bedside Glucose 226mg/dL (70-220) H 223mg/dL (70-220) H 125mg/dL (70-220) 103mg/dL (70-220) Test 06/18/16 09:48 06/18/16 11:54 06/18/16 17:08 06/18/16 20:29 Bedside Glucose 188mg/dL (70-220) 138mg/dL (70-220) 105mg/dL (70-220) 115mg/dL (70-220) Test 06/19/16 07:59 06/19/16 09:02 06/19/16 12:01 Bedside Glucose 70mg/dL (70-220) 150mg/dL (70-220) 112mg/dL (70-220) Results Result Diagram: 06/16/16 0640 06/16/16 0640 Results 24 hrs Laboratory Tests Test 06/18/16 17:08 06/18/16 20:29 06/19/16 07:59 06/19/16 09:02 Bedside Glucose 105 115 70 150 Test 06/19/16 12:01 Bedside Glucose 112 Medications Medications Current Medications Diagnostic Test (Pha) (Accucheck) 1 ea 02 XX Last administered on 06/18/16 01: 31; Admin Dose 1 EA; Start 06/16/16 at 02:00 Atorvastatin Calcium (Lipitor) 40 mg DAILY@21 PO Last administered on 21:01; Admin Dose 40 MG; Start 06/15/16 at 22:00 Miscellaneous Information 1 ea NOTE XX ; Start 06/15/16 at 22:30 Glucose (Glutose) 15 gm Q15M PRN PO DECREASED GLUCOSE; Start 06/15/16 at 22:30 Glucose (Glutose) 22.5 gm Q15M PRN PO DECREASED GLUCOSE; Start 06/15/16 at 22: 30 Dextrose (D50w Syringe) 25 ml Q15M PRN IV DECREASED GLUCOSE; Start 06/15/16 at 22:30 Dextrose (D50w Syringe) 50 ml Q15M PRN IV DECREASED GLUCOSE; Start 06/15/16 at 22:30 Glucagon (Glucagen) 1 mg Q15M PRN IM DECREASED GLUCOSE; Start 06/15/16 at 22:30 Glucose (Glutose) 15 gm Q15M PRN BUCCAL DECREASED GLUCOSE; Start 06/15/16 at 22 :30 Docusate Sodium (Colace) 100 mg BID PO Last administered on 06/19/16 09:03; Admin Dose 100 MG; Start 06/15/16 at 22:00 Hydrochlorothiazide (Hydrochlorothiazide) 12.5 mg DAILY PO Last administered on 06/19/16 09:07; Admin Dose 12.5 MG; Start 06/16/16 at 09:00 Insulin Glargine (Lantus) 18 unit Q12 SC Last administered on 06/19/16 09:12; Admin Dose 18 UNIT; Start 06/15/16 at 22:30 Losartan Potassium (Cozaar) 50 mg DAILY PO Last administered on 06/19/16 09:06 ; Admin Dose 50 MG; Start 06/16/16 at 09:00 Metoprolol Succinate (Toprol Xl) 25 mg BID PO Last administered on 06/19/16 09 :07; Admin Dose 25 MG; Start 06/15/16 at 22:30 Naloxone HCl (Narcan) 0.2 mg Q2M PRN IV DECREASED REPIRATORY RATE; Start at 22:30 Ondansetron HCl (Zofran Inj) 4 mg Q6H PRN IV NAUSEA AND/OR VOMITING; Start at 22:30 Oxycodone/ Acetaminophen (Percocet (5/ 325)) 1 tab Q4H PRN PO PAIN Last administered on 06/17/16 14:29; Admin Dose 1 TAB; Start 06/15/16 at 22:30 Oxycodone/ Acetaminophen (Percocet (5/ 325)) 2 tab Q3H PRN PO PAIN Last administered on 06/19/16 11:44; Admin Dose 2 TAB; Start 06/15/16 at 22:30 Pantoprazole (Protonix Tab) 40 mg DAILY@06 PO Last administered on 06/19/16 06 :56; Admin Dose 40 MG; Start 06/16/16 at 06:00 Prochlorperazine (Compazine) 10 mg Q4H PRN PO NAUSEA AND/OR VOMITING; Start at 22:30 Senna (Senokot) 1 tab HS PO Last administered on 06/18/16 21:03; Admin Dose 1 TAB; Start 06/16/16 at 21:00 Acetaminophen (Tylenol Tab) 650 mg Q4H PRN PO PAIN AND OR ELEVATED TEMP; Start 06/15/16 at 23:30 Bisacodyl (Dulcolax Supp) 10 mg DAILY PRN [place] CONSTIPATION; Start 06/15/16 at 23 :30 Magnesium Hydroxide (Milk Of Mag) 30 ml BID PRN PO CONSTIPATION; Start at 23:30 Lactulose (Enulose) 10 gm DAILY PRN PO CONSTIPATION; Start 06/15/16 at 23:30 Oxycodone HCl (Oxycontin) 10 mg BID@08,13 PO Last administered on 06/19/16 12: 18; Admin Dose 10 MG; Start 06/17/16 at 08:00 MICHAEL HINTON MD Jun 19, 2016 13:13
--- NOTE | 2016-06-19 14:23 | PN ---
Date/Time of Note Date/Time of Note DATE: 06/19/16 TIME: 14:16 Assessment/Plan VTE Prophylaxis VTE Prophylaxis Intervention: ambulation Lines/Catheters Urinary Cath still in place: No Assessment/Plan Assessment/Plan 1. Lumbar spondylolisthesis with spinal stenosis, status post lumbar fusion and laminectomy. With impaired mobility/gait/ADLs. Continue PT/OT, surgical site care. Contact guard assist for transfers and gait on uneven surface with walker. 2. Acute postoperative pain. Has been started on oxycontin for better pain control, will adjust further as needed. Continue prn percocet for breakthrough pain. 3. History of colon cancer s/p partial colectomy. 4. History of cerebrovascular accident. Continue secondary stroke prevention per internal medicine. 5. Type 2 diabetes mellitus. Continue insulin regimen per internal medicine. Monitor blood sugars. 6. Hypertension. BP controlled. Subjective 24 Hr Interval Summary Free Text/Dictation Rehab progress note Subjective: Reports moderate pain in his back after receiving pain medication. ROS: Denies chest pain, no shortness of breath, no abdominal pain, no nausea, no vomiting, no dizziness. Exam/Review of Systems Vital Signs Vitals Vital Signs Date Time Temp Pulse Resp B/P Pulse Ox O2 Delivery O2 Flow Rate FiO2 06/18/16 22:00 98.3 69 18 127/58 96 06/16/16 20:00 Room Air Intake and Output 06/18/16 06/18/16 06/19/16 15:00 23:00 07:00 Intake Total 720 ml 360 ml Output Total 800 ml Balance -80 ml 360 ml Exam General: Awake, alert, no acute distress CV: Regular rate, s1s2 Lungs: Clear to auscultation, no wheezing, no accessory muscle use Abdomen soft, nontender, +bowel sounds Extremities: No cyanosis, calves nontender Neuro: Follows simple commands. Antigravity strength BLE. No new sensory changes. Results Result Diagram: 06/16/16 0640 06/16/16 0640 Results 24 hrs Laboratory Tests Test 06/18/16 17:08 06/18/16 20:29 06/19/16 07:59 06/19/16 09:02 Bedside Glucose 105 115 70 150 Test 06/19/16 12:01 Bedside Glucose 112 Medications Medications Current Medications Diagnostic Test (Pha) (Accucheck) 1 ea XX Last administered on 06/18/16 01: 31; Admin Dose 1 EA; Start 06/16/16 at 02:00 Atorvastatin Calcium (Lipitor) 40 mg DAILY@21 PO Last administered on 21:01; Admin Dose 40 MG; Start 06/15/16 at 22:00 Miscellaneous Information 1 ea NOTE XX ; Start 06/15/16 at 22:30 Glucose (Glutose) 15 gm Q15M PRN PO DECREASED GLUCOSE; Start 06/15/16 at 22:30 Glucose (Glutose) 22.5 gm Q15M PRN PO DECREASED GLUCOSE; Start 06/15/16 at 22: 30 Dextrose (D50w Syringe) 25 ml Q15M PRN IV DECREASED GLUCOSE; Start 06/15/16 at 22:30 Dextrose (D50w Syringe) 50 ml Q15M PRN IV DECREASED GLUCOSE; Start 06/15/16 at 22:30 Glucagon (Glucagen) 1 mg Q15M PRN IM DECREASED GLUCOSE; Start 06/15/16 at 22:30 Glucose (Glutose) 15 gm Q15M PRN BUCCAL DECREASED GLUCOSE; Start 06/15/16 at 22 :30 Docusate Sodium (Colace) 100 mg BID PO Last administered on 06/19/16 09:03; Admin Dose 100 MG; Start 06/15/16 at 22:00 Hydrochlorothiazide (Hydrochlorothiazide) 12.5 mg DAILY PO Last administered on 06/19/16 09:07; Admin Dose 12.5 MG; Start 06/16/16 at 09:00 Insulin Glargine (Lantus) 18 unit Q12 SC Last administered on 06/19/16 09:12; Admin Dose 18 UNIT; Start 06/15/16 at 22:30 Losartan Potassium (Cozaar) 50 mg DAILY PO Last administered on 06/19/16 09:06 ; Admin Dose 50 MG; Start 06/16/16 at 09:00 Metoprolol Succinate (Toprol Xl) 25 mg BID PO Last administered on 06/19/16 09 :07; Admin Dose 25 MG; Start 06/15/16 at 22:30 Naloxone HCl (Narcan) 0.2 mg Q2M PRN IV DECREASED REPIRATORY RATE; Start at 22:30 Ondansetron HCl (Zofran Inj) 4 mg Q6H PRN IV NAUSEA AND/OR VOMITING; Start at 22:30 Oxycodone/ Acetaminophen (Percocet (5/ 325)) 1 tab Q4H PRN PO PAIN Last administered on 06/17/16 14:29; Admin Dose 1 TAB; Start 06/15/16 at 22:30 Oxycodone/ Acetaminophen (Percocet (5/ 325)) 2 tab Q3H PRN PO PAIN Last administered on 06/19/16 11:44; Admin Dose 2 TAB; Start 06/15/16 at 22:30 Pantoprazole (Protonix Tab) 40 mg DAILY@06 PO Last administered on 06/19/16 06 :56; Admin Dose 40 MG; Start 06/16/16 at 06:00 Prochlorperazine (Compazine) 10 mg Q4H PRN PO NAUSEA AND/OR VOMITING; Start at 22:30 Senna (Senokot) 1 tab HS PO Last administered on 06/18/16 21:03; Admin Dose 1 TAB; Start 06/16/16 at 21:00 Acetaminophen (Tylenol Tab) 650 mg Q4H PRN PO PAIN AND OR ELEVATED TEMP; Start 06/15/16 at 23:30 Bisacodyl (Dulcolax Supp) 10 mg DAILY PRN [place] CONSTIPATION; Start 06/15/16 at 23 :30 Magnesium Hydroxide (Milk Of Mag) 30 ml BID PRN PO CONSTIPATION; Start at 23:30 Lactulose (Enulose) 10 gm DAILY PRN PO CONSTIPATION; Start 06/15/16 at 23:30 Oxycodone HCl (Oxycontin) 10 mg BID@08,13 PO Last administered on 06/19/16 12: 18; Admin Dose 10 MG; Start 06/17/16 at 08:00 AMBROSIO MORTON Jun 19, 2016 14:23
[2016-06-19 19:53] VITALS: BP 116/57; RESP 18
[2016-06-19] MEDS: SENNA TAB PO SCH (20:38)
[2016-06-19] MEDS: ATORVASTATIN 40 MG TAB PO SCH (20:39)
[2016-06-20] MEDS: ACCUCHECK AT 2AM (Patients on SS coverage) XX SCH (02:00)
[2016-06-20] MEDS: PANTOPRAZOLE (EC) 40 MG TAB PO SCH (06:40)
[2016-06-20 07:30] VITALS: BP 115/60; RESP 18
[2016-06-20] MEDS: Insulin NOVOLOG SS MODERATE Algorithm (SS with meals and bedtime) SC SCH ×4 (07:35→21:00)
[2016-06-20] MEDS: metFORMIN 500 MG TAB PO SCH ×2 (08:29→17:18)
[2016-06-20] MEDS: oxyCODONE (CR) 10 MG TAB [oxyCONTIN] PO SCH ×2 (08:29→12:25)
[2016-06-20] MEDS: DOCUSATE SODIUM 100 MG CAP PO SCH ×2 (08:29→21:09)
[2016-06-20] MEDS: METOPROLOL (XL) 25 MG TAB PO SCH ×2 (08:30→21:11)
[2016-06-20] MEDS: LOSARTAN 50 MG TAB PO SCH (08:31)
[2016-06-20] MEDS: HYDROCHLOROTHIAZIDE 12.5 MG CAP PO SCH (08:31)
[2016-06-20] MEDS: INSULIN GLARGINE [LANtus] 3 ML PEN SC SCH ×2 (08:33→21:16)
[2016-06-20] MEDS: INSULIN ASPART [NOVOLOG] 3 ML PEN SC SCH ×3 (08:34→17:23)
--- NOTE | 2016-06-20 11:41 | PN ---
Date/Time of Note Date/Time of Note DATE: 06/20/16 TIME: 11:37 Assessment/Plan VTE Prophylaxis VTE Prophylaxis Intervention: ambulation Lines/Catheters Urinary Cath still in place: No Assessment/Plan Problems: (1) Essential hypertension Status: Chronic Comment: Controlled. Cont. current anti-hypertensive regimen (2) Diabetes mellitus type 2 in obese Status: Chronic Comment: Glucose levels below goal. Will decrease lantus from 18 q12 to 14 q12 and decrease Novolog from 9 qac to 7 qac. Reeval tomorrow. (3) Lumbar disc disease with radiculopathy Status: Chronic Comment: Ongoing pain w/ movement. Cont. long-acting pain relief and titrate to good control. Cont. rehab. Subjective 24 Hr Interval Summary Constitutional: improved, no complaints Respiratory: no complaints Cardiovascular: no complaints Gastrointestinal: no complaints Genitourinary: no complaints Musculoskeletal: back pain (feels oxycontin makes pain control more manageable but still with breakthrough during PT) Neurologic: no complaints Exam/Review of Systems Vital Signs Vitals VS - Last 72 Hours, by Label Date Time Temp Pulse Resp B/P Pulse Ox O2 Delivery O2 Flow Rate FiO2 06/19/16 19:53 97.5 67 18 116/57 94 06/19/16 07:30 98.7 68 18 128/62 95 06/18/16 22:00 98.3 69 18 127/58 96 06/18/16 19:30 71 123/63 06/18/16 07:42 98.3 65 18 120/62 96 06/18/16 05:36 67 121/73 06/17/16 21:40 98.6 75 18 123/73 93 Vital Signs Date Time Temp Pulse Resp B/P Pulse Ox O2 Delivery O2 Flow Rate FiO2 06/19/16 19:53 97.5 67 18 116/57 94 06/16/16 20:00 Room Air Intake and Output 06/19/16 06/19/16 06/20/16 15:00 23:00 07:00 Intake Total 1480 ml 820 ml 350 ml Output Total 650 ml 821 ml 1600 ml Balance 830 ml -1 ml -1250 ml Exam Constitutional: alert, oriented, well developed Psych: nl mood/affect, no complaints Respiratory: clear to auscultation, normal air movement Cardiovascular: nl pulses, regular rate and rhythm, No edema, No murmurs/extra sounds, No rub Gastrointestinal: bowel sounds, nl liver, spleen, non-tender, soft, No mass, No rebound or guarding Musculoskeletal: nl extremities to inspection Extremities: normal pulses, No clubbing, No cyanosis, No edema Neurological: [employer] II-XII intact, nl mental status, nl speech, nl strength Additional Comments Bedside Glucose - 72 Hours Test 06/17/16 12:11 06/17/16 14:33 06/17/16 16:56 06/17/16 19:11 Bedside Glucose 139mg/dL (70-220) 176mg/dL (70-220) 146mg/dL (70-220) 226mg/dL (70-220) H Test 06/17/16 20:16 06/18/16 01:29 06/18/16 07:20 06/18/16 09:48 Bedside Glucose 223mg/dL (70-220) H 125mg/dL (70-220) 103mg/dL (70-220) 188mg/dL (70-220) Test 06/18/16 11:54 06/18/16 17:08 06/18/16 20:29 06/19/16 07:59 Bedside Glucose 138mg/dL (70-220) 105mg/dL (70-220) 115mg/dL (70-220) 70mg/dL (70-220) Test 06/19/16 09:02 06/19/16 12:01 06/19/16 16:04 06/19/16 16:30 Bedside Glucose 150mg/dL (70-220) 112mg/dL (70-220) 63mg/dL (70-220) L 89mg/dL (70-220) Test 06/19/16 17:13 06/19/16 20:36 06/20/16 07:49 Bedside Glucose 104mg/dL (70-220) 92mg/dL (70-220) 82mg/dL (70-220) Results Result Diagram: 06/16/1640 06/16/16 0640 Results 24 hrs Laboratory Tests Test 06/19/16 12:01 06/19/16 16:04 06/19/16 16:30 06/19/16 17:13 Bedside Glucose 112 63 L 89 104 Test 06/19/16 20:36 06/20/16 07:49 Bedside Glucose 92 82 Medications Medications Current Medications Diagnostic Test (Pha) (Accucheck) 1 ea 02 XX Last administered on 06/18/16 01: 31; Admin Dose 1 EA; Start 06/16/16 at 02:00 Atorvastatin Calcium (Lipitor) 40 mg DAILY@21 PO Last administered on 20:39; Admin Dose 40 MG; Start 06/15/16 at 22:00 Miscellaneous Information 1 ea NOTE XX ; Start 06/15/16 at 22:30 Glucose (Glutose) 15 gm Q15M PRN PO DECREASED GLUCOSE; Start 06/15/16 at 22:30 Glucose (Glutose) 22.5 gm Q15M PRN PO DECREASED GLUCOSE; Start 06/15/16 at 22: 30 Dextrose (D50w Syringe) 25 ml Q15M PRN IV DECREASED GLUCOSE; Start 06/15/16 at 22:30 Dextrose (D50w Syringe) 50 ml Q15M PRN IV DECREASED GLUCOSE; Start 06/15/16 at 22:30 Glucagon (Glucagen) 1 mg Q15M PRN IM DECREASED GLUCOSE; Start 06/15/16 at 22:30 Glucose (Glutose) 15 gm Q15M PRN BUCCAL DECREASED GLUCOSE; Start 06/15/16 at 22 :30 Docusate Sodium (Colace) 100 mg BID PO Last administered on 06/20/16 08:29; Admin Dose 100 MG; Start 06/15/16 at 22:00 Hydrochlorothiazide (Hydrochlorothiazide) 12.5 mg DAILY PO Last administered on 06/20/16 08:31; Admin Dose 12.5 MG; Start 06/16/16 at 09:00 Losartan Potassium (Cozaar) 50 mg DAILY PO Last administered on 06/20/16 08:31 ; Admin Dose 50 MG; Start 06/16/16 at 09:00 Metoprolol Succinate (Toprol Xl) 25 mg BID PO Last administered on 06/20/16 08 :30; Admin Dose 25 MG; Start 06/15/16 at 22:30 Naloxone HCl (Narcan) 0.2 mg Q2M PRN IV DECREASED REPIRATORY RATE; Start at 22:30 Ondansetron HCl (Zofran Inj) 4 mg Q6H PRN IV NAUSEA AND/OR VOMITING; Start at 22:30 Oxycodone/ Acetaminophen (Percocet (5/ 325)) 1 tab Q4H PRN PO PAIN Last administered on 06/17/16 14:29; Admin Dose 1 TAB; Start 06/15/16 at 22:30 Oxycodone/ Acetaminophen (Percocet (5/ 325)) 2 tab Q3H PRN PO PAIN Last administered on 06/19/16 20:38; Admin Dose 2 TAB; Start 06/15/16 at 22:30 Pantoprazole (Protonix Tab) 40 mg DAILY@06 PO Last administered on 06/20/16 06 :40; Admin Dose 40 MG; Start 06/16/16 at 06:00 Prochlorperazine (Compazine) 10 mg Q4H PRN PO NAUSEA AND/OR VOMITING; Start at 22:30 Senna (Senokot) 1 tab HS PO Last administered on 06/19/16 20:38; Admin Dose 1 TAB; Start 06/16/16 at 21:00 Acetaminophen (Tylenol Tab) 650 mg Q4H PRN PO PAIN AND OR ELEVATED TEMP; Start 06/15/16 at 23:30 Bisacodyl (Dulcolax Supp) 10 mg DAILY PRN [place] CONSTIPATION; Start 06/15/16 at 23 :30 Magnesium Hydroxide (Milk Of Mag) 30 ml BID PRN PO CONSTIPATION; Start at 23:30 Lactulose (Enulose) 10 gm DAILY PRN PO CONSTIPATION; Start 06/15/16 at 23:30 Oxycodone HCl (Oxycontin) 10 mg BID@08,13 PO Last administered on 06/20/16 08: 29; Admin Dose 10 MG; Start 06/17/16 at 08:00 Insulin Glargine (Lantus) 12 unit Q12 SC ; Start 06/20/16 at 21:00; Status MICHAEL VILLEDA MD Jun 20, 2016 11:41
--- NOTE | 2016-06-20 15:32 | PN ---
Date/Time of Note Date/Time of Note DATE: 06/20/16 TIME: 15:28 Assessment/Plan VTE Prophylaxis VTE Prophylaxis Intervention: ambulation Lines/Catheters Urinary Cath still in place: No Assessment/Plan Assessment/Plan 1. Lumbar spondylolisthesis with spinal stenosis, status post lumbar fusion and laminectomy. With impaired mobility/gait/ADLs. Continue PT/OT. Supervision for grooming and upper body dressing, contact guard assist for lower body dressing. Continue surgical site care. 2. Acute postoperative pain. Continue oxycontin- discussed adjusting dose further but at this time he would like to keep current regimen. Continue prn percocet for breakthrough pain, have encouraged him to take prior to therapies for better pain control. 3. History of partial colectomy for colon cancer. 4. History of cerebrovascular accident. Continue secondary stroke prevention. 5. Type 2 insulin dependent diabetes mellitus. Internal medicine adjusting insulin regimen, continue to monitor blood sugars. 6. Hypertension. Continue to monitor BP, controlled. Continue current regimen. Subjective 24 Hr Interval Summary Free Text/Dictation Rehab progress note Subjective: Reports no current pain in low back. Pain increases with therapies and with movement. ROS: Denies headache, no dizziness, denies constipation, no abdominal pain, no shortness of breath, no chest pain. Exam/Review of Systems Vital Signs Vitals Vital Signs Date Time Temp Pulse Resp B/P Pulse Ox O2 Delivery O2 Flow Rate FiO2 06/19/16 19:53 97.5 67 18 116/57 94 06/16/16 20:00 Room Air Intake and Output 06/19/16 06/19/16 06/20/16 15:00 23:00 07:00 Intake Total 1480 ml 820 ml 350 ml Output Total 650 ml 821 ml 1600 ml Balance 830 ml -1 ml -1250 ml Exam General: Awake, alert, no acute distress CV: Regular rate, s1s2 Lungs: Clear to auscultation, no crackles or wheezing Abdomen soft, nontender, +bowel sounds Extremities: No cyanosis, no new swelling. Neuro: No focal changes. Follows simple commands. Results Result Diagram: 06/16/16 0640 06/16/16 0640 Results 24 hrs Laboratory Tests Test 06/19/16 16:04 06/19/16 16:30 06/19/16 17:13 06/19/16 20:36 Bedside Glucose 63 L 89 104 92 Test 06/20/16 07:49 06/20/16 11:45 Bedside Glucose 82 91 Medications Medications Current Medications Diagnostic Test (Pha) (Accucheck) 1 ea 02 XX Last administered on 06/18/16 01: 31; Admin Dose 1 EA; Start 06/16/16 at 02:00 Atorvastatin Calcium (Lipitor) 40 mg DAILY@21 PO Last administered on 20:39; Admin Dose 40 MG; Start 06/15/16 at 22:00 Miscellaneous Information 1 ea NOTE XX ; Start 06/15/16 at 22:30 Glucose (Glutose) 15 gm Q15M PRN PO DECREASED GLUCOSE; Start 06/15/16 at 22:30 Glucose (Glutose) 22.5 gm Q15M PRN PO DECREASED GLUCOSE; Start 06/15/16 at 22: 30 Dextrose (D50w Syringe) 25 ml Q15M PRN IV DECREASED GLUCOSE; Start 06/15/16 at 22:30 Dextrose (D50w Syringe) 50 ml Q15M PRN IV DECREASED GLUCOSE; Start 06/15/16 at 22:30 Glucagon (Glucagen) 1 mg Q15M PRN IM DECREASED GLUCOSE; Start 06/15/16 at 22:30 Glucose (Glutose) 15 gm Q15M PRN BUCCAL DECREASED GLUCOSE; Start 06/15/16 at 22 :30 Docusate Sodium (Colace) 100 mg BID PO Last administered on 06/20/16 08:29; Admin Dose 100 MG; Start 06/15/16 at 22:00 Hydrochlorothiazide (Hydrochlorothiazide) 12.5 mg DAILY PO Last administered on 06/20/16 08:31; Admin Dose 12.5 MG; Start 06/16/16 at 09:00 Losartan Potassium (Cozaar) 50 mg DAILY PO Last administered on 06/20/16 08:31 ; Admin Dose 50 MG; Start 06/16/16 at 09:00 Metoprolol Succinate (Toprol Xl) 25 mg BID PO Last administered on 06/20/16 08 :30; Admin Dose 25 MG; Start 06/15/16 at 22:30 Naloxone HCl (Narcan) 0.2 mg Q2M PRN IV DECREASED REPIRATORY RATE; Start at 22:30 Ondansetron HCl (Zofran Inj) 4 mg Q6H PRN IV NAUSEA AND/OR VOMITING; Start at 22:30 Oxycodone/ Acetaminophen (Percocet (5/ 325)) 1 tab Q4H PRN PO PAIN Last administered on 06/17/16 14:29; Admin Dose 1 TAB; Start 06/15/16 at 22:30 Oxycodone/ Acetaminophen (Percocet (5/ 325)) 2 tab Q3H PRN PO PAIN Last administered on 06/19/16 20:38; Admin Dose 2 TAB; Start 06/15/16 at 22:30 Pantoprazole (Protonix Tab) 40 mg DAILY@06 PO Last administered on 06/20/16 06 :40; Admin Dose 40 MG; Start 06/16/16 at 06:00 Prochlorperazine (Compazine) 10 mg Q4H PRN PO NAUSEA AND/OR VOMITING; Start at 22:30 Senna (Senokot) 1 tab HS PO Last administered on 06/19/16 20:38; Admin Dose 1 TAB; Start 06/16/16 at 21:00 Acetaminophen (Tylenol Tab) 650 mg Q4H PRN PO PAIN AND OR ELEVATED TEMP; Start 06/15/16 at 23:30 Bisacodyl (Dulcolax Supp) 10 mg DAILY PRN [place] CONSTIPATION; Start 06/15/16 at 23 :30 Magnesium Hydroxide (Milk Of Mag) 30 ml BID PRN PO CONSTIPATION; Start at 23:30 Lactulose (Enulose) 10 gm DAILY PRN PO CONSTIPATION; Start 06/15/16 at 23:30 Oxycodone HCl (Oxycontin) 10 mg BID@08,13 PO Last administered on 06/20/16 12: 25; Admin Dose 10 MG; Start 06/17/16 at 08:00 Insulin Glargine (Lantus) 12 unit Q12 SC ; Start 06/20/16 at 21:00 AMBROSIO MORTON Jun 20, 2016 15:32
[2016-06-20] MEDS: OXYCODONE/ACETAMINOPHEN (5/325) TAB PO PRN ×2 (17:19→21:12)
[2016-06-20 19:30] VITALS: BP 112/60; PULSE 65
[2016-06-20] MEDS: ATORVASTATIN 40 MG TAB PO SCH (21:09)
[2016-06-20] MEDS: SENNA TAB PO SCH (21:09)
[2016-06-20 21:49] VITALS: BP 100/57; RESP 19
[2016-06-21] MEDS: ACCUCHECK AT 2AM (Patients on SS coverage) XX SCH (02:00)
[2016-06-21] MEDS: OXYCODONE/ACETAMINOPHEN (5/325) TAB PO PRN (06:31)
[2016-06-21] MEDS: PANTOPRAZOLE (EC) 40 MG TAB PO SCH (06:31)
[2016-06-21 07:30] VITALS: BP 110/59; RESP 18
[2016-06-21] MEDS: Insulin NOVOLOG SS MODERATE Algorithm (SS with meals and bedtime) SC SCH ×4 (07:35→21:00)
[2016-06-21] MEDS: METOPROLOL (XL) 25 MG TAB PO SCH ×2 (08:28→20:36)
[2016-06-21] MEDS: oxyCODONE (CR) 10 MG TAB [oxyCONTIN] PO SCH ×3 (08:29→17:38)
[2016-06-21] MEDS: INSULIN ASPART [NOVOLOG] 3 ML PEN SC SCH ×3 (08:30→17:41)
[2016-06-21] MEDS: INSULIN GLARGINE [LANtus] 3 ML PEN SC SCH ×2 (08:31→21:00)
[2016-06-21] MEDS: DOCUSATE SODIUM 100 MG CAP PO SCH ×2 (08:32→20:32)
[2016-06-21] MEDS: LOSARTAN 50 MG TAB PO SCH (08:32)
[2016-06-21] MEDS: metFORMIN 500 MG TAB PO SCH ×2 (08:33→17:38)
[2016-06-21] MEDS: HYDROCHLOROTHIAZIDE 12.5 MG CAP PO SCH (08:33)
--- NOTE | 2016-06-21 12:28 | CONS ---
Date/Time of Note Date/Time of Note DATE: 06/21/16 TIME: 12:28 Consult Date/Type/Reason Admit Date/Time Jun 15, 2016 at 21:58 Objective Vital Signs Date Time Temp Pulse Resp B/P Pulse Ox O2 Delivery O2 Flow Rate FiO2 06/21/16 07:30 98.4 64 18 110/59 94 Intake and Output 06/20/16 06/20/16 06/21/16 15:00 23:00 07:00 Intake Total 820 ml 1100 ml Output Total 681 ml 1200 ml Balance 139 ml -100 ml INTERDISCIPLINARY TEAM CONFERENCE BOWEL- Cont BLADDER-Cont SKIN- intact OT- DRESSING-sba BATHING-sba TOILETING-sba PT- BED MOBILITY-sba TRANSFERS-sba AMBULATION-sba 150 feet A/P- Interdisciplinary team conference held today. Please see interdisciplinary sheet. Working toward d.c. on 06/25 with post discharge follow up of physical therapy, occupational therapy. Results/Medications Results 24 hrs Laboratory Tests Test 06/20/16 17:21 06/20/16 21:07 06/21/16 07:44 Bedside Glucose 87 96 123 Medications Current Medications Diagnostic Test (Pha) (Accucheck) 1 ea 02 XX Last administered on 06/18/16t 01: 31; Admin Dose 1 EA; Start 06/16/16 at 02:00 Atorvastatin Calcium (Lipitor) 40 mg DAILY@21 PO Last administered on t 21:09; Admin Dose 40 MG; Start 06/15/16 at 22:00 Miscellaneous Information 1 ea NOTE XX ; Start 06/15/16 at 22:30 Glucose (Glutose) 15 gm Q15M PRN PO DECREASED GLUCOSE; Start 06/15/16 at 22:30 Glucose (Glutose) 22.5 gm Q15M PRN PO DECREASED GLUCOSE; Start 06/15/16 at 22: 30 Dextrose (D50w Syringe) 25 ml Q15M PRN IV DECREASED GLUCOSE; Start 06/15/16 at 22:30 Dextrose (D50w Syringe) 50 ml Q15M PRN IV DECREASED GLUCOSE; Start 06/15/16 at 22:30 Glucagon (Glucagen) 1 mg Q15M PRN IM DECREASED GLUCOSE; Start 06/15/16 at 22:30 Glucose (Glutose) 15 gm Q15M PRN BUCCAL DECREASED GLUCOSE; Start 06/15/16 at 22 :30 Docusate Sodium (Colace) 100 mg BID PO Last administered on 06/21/16 08:32; Admin Dose 100 MG; Start 06/15/16 at 22:00 Hydrochlorothiazide (Hydrochlorothiazide) 12.5 mg DAILY PO Last administered on 06/21/16 08:33; Admin Dose 12.5 MG; Start 06/16/16 at 09:00 Losartan Potassium (Cozaar) 50 mg DAILY PO Last administered on 06/21/16 08:32 ; Admin Dose 50 MG; Start 06/16/16 at 09:00 Metoprolol Succinate (Toprol Xl) 25 mg BID PO Last administered on 06/21/16 08 :28; Admin Dose 25 MG; Start 06/15/16 at 22:30 Naloxone HCl (Narcan) 0.2 mg Q2M PRN IV DECREASED REPIRATORY RATE; Start at 22:30 Ondansetron HCl (Zofran Inj) 4 mg Q6H PRN IV NAUSEA AND/OR VOMITING; Start at 22:30 Oxycodone/ Acetaminophen (Percocet (5/ 325)) 1 tab Q4H PRN PO PAIN Last administered on 06/17/16 14:29; Admin Dose 1 TAB; Start 06/15/16 at 22:30 Oxycodone/ Acetaminophen (Percocet (5/ 325)) 2 tab Q3H PRN PO PAIN Last administered on 06/21/16 06:31; Admin Dose 2 TAB; Start 06/15/16 at 22:30 Pantoprazole (Protonix Tab) 40 mg DAILY@06 PO Last administered on 06/21/16 06 :31; Admin Dose 40 MG; Start 06/16/16 at 06:00 Prochlorperazine (Compazine) 10 mg Q4H PRN PO NAUSEA AND/OR VOMITING; Start at 22:30 Senna (Senokot) 1 tab HS PO Last administered on 06/20/16 21:09; Admin Dose 1 TAB; Start 06/16/16 at 21:00 Acetaminophen (Tylenol Tab) 650 mg Q4H PRN PO PAIN AND OR ELEVATED TEMP; Start 06/15/16 at 23:30 Bisacodyl (Dulcolax Supp) 10 mg DAILY PRN [place] CONSTIPATION; Start 06/15/16 at 23 :30 Magnesium Hydroxide (Milk Of Mag) 30 ml BID PRN PO CONSTIPATION; Start at 23:30 Lactulose (Enulose) 10 gm DAILY PRN PO CONSTIPATION; Start 06/15/16 at 23:30 Oxycodone HCl (Oxycontin) 10 mg BID@08,13 PO Last administered on 06/21/16 08: 29; Admin Dose 10 MG; Start 06/17/16 at 08:00 Insulin Glargine (Lantus) 12 unit Q12 SC Last administered on 06/21/16 08:31; Admin Dose 12 UNIT; Start 06/20/16 at 21:00 BASHIR JOY MD Jun 21, 2016 12:28 Insulin Glargine (Lantus) 12 unit Q12 SC Last administered on 06/21/16 08:31; Admin Dose 12 UNIT; Start 06/20/16 at 21:00 BASHIR JOY MD Jun 21, 2016 12:28
[2016-06-21 20:00] VITALS: BP 111/59; RESP 19
[2016-06-21] MEDS: ATORVASTATIN 40 MG TAB PO SCH (20:32)
[2016-06-21] MEDS: SENNA TAB PO SCH (20:36)
[2016-06-22] MEDS: ACCUCHECK AT 2AM (Patients on SS coverage) XX SCH (02:00)
[2016-06-22] MEDS: PANTOPRAZOLE (EC) 40 MG TAB PO SCH (05:46)
[2016-06-22 07:30] VITALS: BP 123/61; RESP 18
[2016-06-22] MEDS: metFORMIN 500 MG TAB PO SCH ×2 (07:35→17:28)
[2016-06-22] MEDS: INSULIN ASPART [NOVOLOG] 3 ML PEN SC SCH ×3 (08:12→17:32)
[2016-06-22] MEDS: Insulin NOVOLOG SS MODERATE Algorithm (SS with meals and bedtime) SC SCH ×4 (08:13→21:00)
[2016-06-22] MEDS: METOPROLOL (XL) 25 MG TAB PO SCH ×2 (08:55→20:51)
[2016-06-22] MEDS: HYDROCHLOROTHIAZIDE 12.5 MG CAP PO SCH (08:56)
[2016-06-22] MEDS: DOCUSATE SODIUM 100 MG CAP PO SCH ×2 (08:56→21:00)
[2016-06-22] MEDS: LOSARTAN 50 MG TAB PO SCH (08:57)
[2016-06-22] MEDS: oxyCODONE (CR) 10 MG TAB [oxyCONTIN] PO SCH ×2 (08:57→13:00)
[2016-06-22] MEDS: INSULIN GLARGINE [LANtus] 3 ML PEN SC SCH ×2 (10:52→20:54)
--- NOTE | 2016-06-22 12:10 | CONS ---
Date/Time of Note Date/Time of Note DATE: 06/22/16 TIME: 12:09 Consult Date/Type/Reason Admit Date/Time Jun 15, 2016 at 21:58 Subjective Reports feeling "dopey" from meds Objective pulm- cta sba ambulation Vital Signs Date Time Temp Pulse Resp B/P Pulse Ox O2 Delivery O2 Flow Rate FiO2 06/22/16 07:30 98.3 71 18 123/61 97 Intake and Output 06/21/16 06/21/16 06/22/16 15:00 23:00 07:00 Intake Total 620 ml 500 ml Output Total 421 ml Balance 199 ml 500 ml Results/Medications Result Diagram: 06/21/162009 Results 24 hrs Laboratory Tests Test 06/21/16 12:21 06/21/16 17:19 06/21/16 19:50 06/21/16 20:06 Bedside Glucose 161 82 46 *L 67 L Test 06/21/16 20:10 06/21/16 20:20 06/22/16 07:44 Glucose Level 55 L Bedside Glucose 75 153 Medications Current Medications Diagnostic Test (Pha) (Accucheck) 1 ea 02 XX Last administered on 06/18/16t 01: 31; Admin Dose 1 EA; Start 06/16/16 at 02:00 Atorvastatin Calcium (Lipitor) 40 mg DAILY@21 PO Last administered on 20:32; Admin Dose 40 MG; Start 06/15/16 at 22:00 Miscellaneous Information 1 ea NOTE XX ; Start 06/15/16 at 22:30 Glucose (Glutose) 15 gm Q15M PRN PO DECREASED GLUCOSE; Start 06/15/16 at 22:30 Glucose (Glutose) 22.5 gm Q15M PRN PO DECREASED GLUCOSE; Start 06/15/16 at 22: 30 Dextrose (D50w Syringe) 25 ml Q15M PRN IV DECREASED GLUCOSE; Start 06/15/16 at 22:30 Dextrose (D50w Syringe) 50 ml Q15M PRN IV DECREASED GLUCOSE; Start 06/15/16 at 22:30 Glucagon (Glucagen) 1 mg Q15M PRN IM DECREASED GLUCOSE; Start 06/15/16 at 22:30 Glucose (Glutose) 15 gm Q15M PRN BUCCAL DECREASED GLUCOSE; Start 06/15/16 at 22 :30 Docusate Sodium (Colace) 100 mg BID PO Last administered on 06/22/16 08:56; Admin Dose 100 MG; Start 06/15/16 at 22:00 Hydrochlorothiazide (Hydrochlorothiazide) 12.5 mg DAILY PO Last administered on 06/22/16 08:56; Admin Dose 12.5 MG; Start 06/16/16 at 09:00 Losartan Potassium (Cozaar) 50 mg DAILY PO Last administered on 06/22/16 08:57 ; Admin Dose 50 MG; Start 06/16/16 at 09:00 Metoprolol Succinate (Toprol Xl) 25 mg BID PO Last administered on 06/22/16 08 :55; Admin Dose 25 MG; Start 06/15/16 at 22:30 Naloxone HCl (Narcan) 0.2 mg Q2M PRN IV DECREASED REPIRATORY RATE; Start at 22:30 Ondansetron HCl (Zofran Inj) 4 mg Q6H PRN IV NAUSEA AND/OR VOMITING; Start at 22:30 Oxycodone/ Acetaminophen (Percocet (5/ 325)) 1 tab Q4H PRN PO PAIN Last administered on 06/17/16 14:29; Admin Dose 1 TAB; Start 06/15/16 at 22:30 Oxycodone/ Acetaminophen (Percocet (5/ 325)) 2 tab Q3H PRN PO PAIN Last administered on 06/21/16 06:31; Admin Dose 2 TAB; Start 06/15/16 at 22:30 Pantoprazole (Protonix Tab) 40 mg DAILY@06 PO Last administered on 06/22/16 05 :46; Admin Dose 40 MG; Start 06/16/16 at 06:00 Prochlorperazine (Compazine) 10 mg Q4H PRN PO NAUSEA AND/OR VOMITING; Start at 22:30 Senna (Senokot) 1 tab HS PO Last administered on 06/21/16 20:36; Admin Dose 1 TAB; Start 06/16/16 at 21:00 Acetaminophen (Tylenol Tab) 650 mg Q4H PRN PO PAIN AND OR ELEVATED TEMP; Start 06/15/16 at 23:30 Bisacodyl (Dulcolax Supp) 10 mg DAILY PRN [place] CONSTIPATION; Start 1/24/17 at 23 :30 Magnesium Hydroxide (Milk Of Mag) 30 ml BID PRN PO CONSTIPATION; Start at 23:30 Lactulose (Enulose) 10 gm DAILY PRN PO CONSTIPATION; Start 06/15/16 at 23:30 Insulin Glargine (Lantus) 12 unit Q12 SC Last administered on 06/22/16 10:52; Admin Dose 12 UNIT; Start 06/20/16 at 21:00; Status Future hold Oxycodone HCl (Oxycontin) 10 mg 08,13,18 PO Last administered on 06/22/16 08: 57; Admin Dose 10 MG; Start 06/21/16 at 18:00 Insulin Glargine (Lantus) 8 unit HS ONCE SC Last administered on 06/21/16 21: 38; Admin Dose 8 UNIT; Start 06/22/16 at 21:00; Stop 06/22/16 at 21:01 Assessment/Plan Additional Assessment/Plan Rehab- Lumbar radiculopathy, spondylolisthesis, status post lumbar fusion and laminectomy. Progressing well with rehab treatment plan History of right rotator cuff impairment. History of bilateral knee surgeries. History of partial colectomy for colon cancer. History of cerebrovascular accident. Type 2 diabetes mellitus. Hypertension. BASHIR JOY MD Jun 22, 2016 12:10
--- NOTE | 2016-06-22 13:58 | CONS ---
Date/Time of Note Date/Time of Note DATE: 06/22/16 TIME: 13:56 Assessment/Plan Assessment/Plan Problems: (1) Diabetes mellitus type 2 in obese Status: Chronic Comment: Patient had decrease in sugar yesterday after spot dosage of insulin to help correct for hyperglycemia. Medications are being adjusted to compensate expect will do well. Consultation Date/Type/Reason Admit Date/Time Jun 15, 2016 at 21:58 Initial Consult Date Type of Consultation: endocrinology 24 HR Interval Summary Constitutional: no complaints Exam/Review of Systems Vital Signs Vitals Vital Signs Date Time Temp Pulse Resp B/P Pulse Ox O2 Delivery O2 Flow Rate FiO2 06/22/16 07:30 98.3 71 18 123/61 97 Intake and Output 06/21/16 06/21/16 06/22/16 15:00 23:00 07:00 Intake Total 620 ml 500 ml Output Total 421 ml Balance 199 ml 500 ml Exam Constitutional: alert, oriented Respiratory: clear to auscultation, normal air movement Results Result Diagram: 06/21/162009 Results 24 hrs Laboratory Tests Test 06/21/16 17:19 06/21/16 19:50 06/21/16 20:06 06/21/16 20:10 Bedside Glucose 82 46 *L 67 L Glucose Level 55 L Test 06/21/16 20:20 06/22/16 07:44 06/22/16 12:22 Bedside Glucose 75 153 125 Medications Medications Current Medications Diagnostic Test (Pha) (Accucheck) 1 ea 02 XX Last administered on 06/18/16 01: 31; Admin Dose 1 EA; Start 06/16/16 at 02:00 Atorvastatin Calcium (Lipitor) 40 mg DAILY@21 PO Last administered on 20:32; Admin Dose 40 MG; Start 06/15/16 at 22:00 Miscellaneous Information 1 ea NOTE XX ; Start 06/15/16 at 22:30 Glucose (Glutose) 15 gm Q15M PRN PO DECREASED GLUCOSE; Start 06/15/16 at 22:30 Glucose (Glutose) 22.5 gm Q15M PRN PO DECREASED GLUCOSE; Start 06/15/16 at 22: 30 Dextrose (D50w Syringe) 25 ml Q15M PRN IV DECREASED GLUCOSE; Start 06/15/16 at 22:30 Dextrose (D50w Syringe) 50 ml Q15M PRN IV DECREASED GLUCOSE; Start 06/15/16 at 22:30 Glucagon (Glucagen) 1 mg Q15M PRN IM DECREASED GLUCOSE; Start 06/15/16 at 22:30 Glucose (Glutose) 15 gm Q15M PRN BUCCAL DECREASED GLUCOSE; Start 06/15/16 at 22 :30 Docusate Sodium (Colace) 100 mg BID PO Last administered on 06/22/16 08:56; Admin Dose 100 MG; Start 06/15/16 at 22:00 Hydrochlorothiazide (Hydrochlorothiazide) 12.5 mg DAILY PO Last administered on 06/22/16 08:56; Admin Dose 12.5 MG; Start 06/16/16 at 09:00 Losartan Potassium (Cozaar) 50 mg DAILY PO Last administered on 06/22/16 08:57 ; Admin Dose 50 MG; Start 06/16/16 at 09:00 Metoprolol Succinate (Toprol Xl) 25 mg BID PO Last administered on 06/22/16 08 :55; Admin Dose 25 MG; Start 06/15/16 at 22:30 Naloxone HCl (Narcan) 0.2 mg Q2M PRN IV DECREASED REPIRATORY RATE; Start at 22:30 Ondansetron HCl (Zofran Inj) 4 mg Q6H PRN IV NAUSEA AND/OR VOMITING; Start at 22:30 Oxycodone/ Acetaminophen (Percocet (5/ 325)) 1 tab Q4H PRN PO PAIN Last administered on 06/17/16 14:29; Admin Dose 1 TAB; Start 06/15/16 at 22:30 Oxycodone/ Acetaminophen (Percocet (5/ 325)) 2 tab Q3H PRN PO PAIN Last administered on 06/21/16 06:31; Admin Dose 2 TAB; Start 06/15/16 at 22:30 Pantoprazole (Protonix Tab) 40 mg DAILY@06 PO Last administered on 06/22/16 05 :46; Admin Dose 40 MG; Start 06/16/16 at 06:00 Prochlorperazine (Compazine) 10 mg Q4H PRN PO NAUSEA AND/OR VOMITING; Start at 22:30 Senna (Senokot) 1 tab HS PO Last administered on 06/21/16 20:36; Admin Dose 1 TAB; Start 06/16/16 at 21:00 Acetaminophen (Tylenol Tab) 650 mg Q4H PRN PO PAIN AND OR ELEVATED TEMP; Start 06/15/16 at 23:30 Bisacodyl (Dulcolax Supp) 10 mg DAILY PRN [place] CONSTIPATION; Start 06/15/16 at 23 :30 Magnesium Hydroxide (Milk Of Mag) 30 ml BID PRN PO CONSTIPATION; Start at 23:30 Lactulose (Enulose) 10 gm DAILY PRN PO CONSTIPATION; Start 06/15/16 at 23:30 Insulin Glargine (Lantus) 12 unit Q12 SC Last administered on 06/22/16 10:52; Admin Dose 12 UNIT; Start 06/20/16 at 21:00; Status Future hold Insulin Glargine (Lantus) 8 unit HS ONCE SC Last administered on 06/21/16 21: 38; Admin Dose 8 UNIT; Start 06/22/16 at 21:00; Stop 06/22/16 at 21:01 TORRES KEY MD Jun 22, 2016 13:57
[2016-06-22 20:00] VITALS: BP 119/66; PULSE 73; RESP 18
[2016-06-22] MEDS: ATORVASTATIN 40 MG TAB PO SCH (20:49)
[2016-06-22] MEDS ORDERED: INSULIN GLARGINE [LANtus] 3 ML PEN SC ONE (21:00)
[2016-06-22] MEDS: SENNA TAB PO SCH (21:00)
[2016-06-23] MEDS: ACCUCHECK AT 2AM (Patients on SS coverage) XX SCH (02:00)
[2016-06-23] MEDS: PANTOPRAZOLE (EC) 40 MG TAB PO SCH (06:12)
[2016-06-23] MEDS: Insulin NOVOLOG SS MODERATE Algorithm (SS with meals and bedtime) SC SCH ×4 (07:35→21:00)
[2016-06-23 08:00] VITALS: BP 116/59; PULSE 72; RESP 20
[2016-06-23] MEDS: metFORMIN 500 MG TAB PO SCH ×2 (08:16→17:42)
[2016-06-23] MEDS: INSULIN ASPART [NOVOLOG] 3 ML PEN SC SCH ×3 (08:17→17:35)
[2016-06-23] MEDS: HYDROCHLOROTHIAZIDE 12.5 MG CAP PO SCH (09:22)
[2016-06-23] MEDS: DOCUSATE SODIUM 100 MG CAP PO SCH ×2 (09:22→21:00)
[2016-06-23] MEDS: METOPROLOL (XL) 25 MG TAB PO SCH ×2 (09:22→20:10)
[2016-06-23] MEDS: LOSARTAN 50 MG TAB PO SCH (09:23)
[2016-06-23] MEDS: INSULIN GLARGINE [LANtus] 3 ML PEN SC SCH ×2 (09:26→20:16)
[2016-06-23] MEDS: OXYCODONE/ACETAMINOPHEN (5/325) TAB PO PRN ×2 (09:29→20:08)
--- NOTE | 2016-06-23 11:24 | CONS ---
Date/Time of Note Date/Time of Note DATE: 06/23/16 TIME: 11:23 Consult Date/Type/Reason Admit Date/Time Jun 15, 2016 at 21:58 Type of Consultation: endocrinology Subjective Feels much better Objective Vital Signs Date Time Temp Pulse Resp B/P Pulse Ox O2 Delivery O2 Flow Rate FiO2 06/22/16 20:00 98.2 73 18 119/66 96 Room Air Intake and Output 06/22/16 06/22/16 06/23/16 14:59 22:59 06:59 Intake Total 1220 ml 360 ml 500 ml Output Total 1600 ml Balance 1220 ml 360 ml -1100 ml pulm- cta sba ambulation Results/Medications Result Diagram: 06/21/162009 Results 24 hrs Laboratory Tests Test 06/22/16 12:22 06/22/16 17:14 06/22/16 20:48 06/23/16 07:26 Bedside Glucose 125 143 136 130 Medications Current Medications Diagnostic Test (Pha) (Accucheck) 1 ea 02 XX Last administered on 06/18/16 01: 31; Admin Dose 1 EA; Start 06/16/16 at 02:00 Atorvastatin Calcium (Lipitor) 40 mg DAILY@21 PO Last administered on 20:49; Admin Dose 40 MG; Start 06/15/16 at 22:00 Miscellaneous Information 1 ea NOTE XX ; Start 06/15/16 at 22:30 Glucose (Glutose) 15 gm Q15M PRN PO DECREASED GLUCOSE; Start 06/15/16 at 22:30 Glucose (Glutose) 22.5 gm Q15M PRN PO DECREASED GLUCOSE; Start 06/15/16 at 22: 30 Dextrose (D50w Syringe) 25 ml Q15M PRN IV DECREASED GLUCOSE; Start 06/15/16 at 22:30 Dextrose (D50w Syringe) 50 ml Q15M PRN IV DECREASED GLUCOSE; Start 06/15/16 at 22:30 Glucagon (Glucagen) 1 mg Q15M PRN IM DECREASED GLUCOSE; Start 06/15/16 at 22:30 Glucose (Glutose) 15 gm Q15M PRN BUCCAL DECREASED GLUCOSE; Start 06/15/16 at 22 :30 Docusate Sodium (Colace) 100 mg BID PO Last administered on 06/23/16 09:22; Admin Dose 100 MG; Start 06/15/16 at 22:00 Hydrochlorothiazide (Hydrochlorothiazide) 12.5 mg DAILY PO Last administered on 06/23/16 09:22; Admin Dose 12.5 MG; Start 06/16/16 at 09:00 Losartan Potassium (Cozaar) 50 mg DAILY PO Last administered on 06/23/16 09:23 ; Admin Dose 50 MG; Start 06/16/16 at 09:00 Metoprolol Succinate (Toprol Xl) 25 mg BID PO Last administered on 06/23/16 09: 22; Admin Dose 25 MG; Start 06/15/16 at 22:30 Naloxone HCl (Narcan) 0.2 mg Q2M PRN IV DECREASED REPIRATORY RATE; Start at 22:30 Ondansetron HCl (Zofran Inj) 4 mg Q6H PRN IV NAUSEA AND/OR VOMITING; Start at 22:30 Oxycodone/ Acetaminophen (Percocet (5/ 325)) 1 tab Q4H PRN PO PAIN Last administered on 06/17/16 14:29; Admin Dose 1 TAB; Start 06/15/16 at 22:30 Oxycodone/ Acetaminophen (Percocet (5/ 325)) 2 tab Q3H PRN PO PAIN Last administered on 06/23/16 09:29; Admin Dose 2 TAB; Start 06/15/16 at 22:30 Pantoprazole (Protonix Tab) 40 mg DAILY@06 PO Last administered on 06/23/16 06: 12; Admin Dose 40 MG; Start 06/16/16 at 06:00 Prochlorperazine (Compazine) 10 mg Q4H PRN PO NAUSEA AND/OR VOMITING; Start at 22:30 Senna (Senokot) 1 tab HS PO Last administered on 06/21/16 20:36; Admin Dose 1 TAB; Start 06/16/16 at 21:00 Acetaminophen (Tylenol Tab) 650 mg Q4H PRN PO PAIN AND OR ELEVATED TEMP; Start 06/15/16 at 23:30 Bisacodyl (Dulcolax Supp) 10 mg DAILY PRN [place] CONSTIPATION; Start 06/15/16 at 23 :30 Magnesium Hydroxide (Milk Of Mag) 30 ml BID PRN PO CONSTIPATION; Start at 23:30 Lactulose (Enulose) 10 gm DAILY PRN PO CONSTIPATION; Start 06/15/16 at 23:30 Insulin Glargine (Lantus) 12 unit Q12 SC Last administered on 06/23/16t 09:26; Admin Dose 12 UNIT; Start 06/20/16 at 21:00; Status Future hold Assessment/Plan Additional Assessment/Plan Rehab- Lumbar radiculopathy, spondylolisthesis, status post lumbar fusion and laminectomy. Progressing well with rehab treatment plan. Anticipate dc Tuesday History of right rotator cuff impairment. History of bilateral knee surgeries. History of partial colectomy for colon cancer. History of cerebrovascular accident. Type 2 diabetes mellitus. Hypertension. BASHIR JOY MD Jun 23, 2016 11:24
[2016-06-23 20:00] VITALS: BP 114/58; RESP 16
[2016-06-23] MEDS: ATORVASTATIN 40 MG TAB PO SCH (20:07)
[2016-06-23] MEDS: SENNA TAB PO SCH (21:00)
[2016-06-24] MEDS: ACCUCHECK AT 2AM (Patients on SS coverage) XX SCH (02:00)
[2016-06-24] MEDS: PANTOPRAZOLE (EC) 40 MG TAB PO SCH (05:15)
[2016-06-24 05:16] VITALS: BP 109/58; PULSE 75
[2016-06-24] MEDS: OXYCODONE/ACETAMINOPHEN (5/325) TAB PO PRN ×3 (07:15→20:15)
[2016-06-24] MEDS: Insulin NOVOLOG SS MODERATE Algorithm (SS with meals and bedtime) SC SCH ×4 (07:35→20:18)
[2016-06-24 08:10] VITALS: BP 113/61; RESP 18
[2016-06-24] MEDS: HYDROCHLOROTHIAZIDE 12.5 MG CAP PO SCH (08:59)
[2016-06-24] MEDS: metFORMIN 500 MG TAB PO SCH ×2 (08:59→17:19)
[2016-06-24] MEDS: DOCUSATE SODIUM 100 MG CAP PO SCH ×2 (09:00→20:13)
[2016-06-24] MEDS: METOPROLOL (XL) 25 MG TAB PO SCH ×2 (09:00→20:13)
[2016-06-24] MEDS: LOSARTAN 50 MG TAB PO SCH (09:00)
[2016-06-24] MEDS: INSULIN ASPART [NOVOLOG] 3 ML PEN SC SCH ×3 (09:03→17:21)
[2016-06-24] MEDS: INSULIN GLARGINE [LANtus] 3 ML PEN SC SCH ×2 (09:04→20:17)
--- NOTE | 2016-06-24 12:04 | CONS ---
Date/Time of Note Date/Time of Note DATE: 06/24/16 TIME: 12:03 Consult Date/Type/Reason Admit Date/Time Jun 15, 2016 at 21:58 Type of Consultation: endocrinology Subjective Doing very well Objective pulm- cta sba ambulation 150 feet Vital Signs Date Time Temp Pulse Resp B/P Pulse Ox O2 Delivery O2 Flow Rate FiO2 06/24/16 08:10 98.5 63 18 113/61 96 06/23/16 08:00 Room Air Intake and Output 06/23/16 06/23/16 06/24/16 15:00 23:00 07:00 Intake Total 650 ml 500 ml Output Total 800 ml 700 ml Balance -150 ml -200 ml Results/Medications Result Diagram: 06/21/162009 Results 24 hrs Laboratory Tests Test 06/23/16 17:01 06/23/16 20:06 06/24/16 07:30 Bedside Glucose 103 163 119 Medications Current Medications Diagnostic Test (Pha) (Accucheck) 1 ea 02 XX Last administered on 06/18/16 01: 31; Admin Dose 1 EA; Start 06/16/16 at 02:00 Atorvastatin Calcium (Lipitor) 40 mg DAILY@21 PO Last administered on 06/23/16 20:07; Admin Dose 40 MG; Start 06/15/16 at 22:00 Miscellaneous Information 1 ea NOTE XX ; Start 06/15/16 at 22:30 Glucose (Glutose) 15 gm Q15M PRN PO DECREASED GLUCOSE; Start 06/15/16 at 22:30 Glucose (Glutose) 22.5 gm Q15M PRN PO DECREASED GLUCOSE; Start 06/15/16 at 22: 30 Dextrose (D50w Syringe) 25 ml Q15M PRN IV DECREASED GLUCOSE; Start 06/15/16 at 22:30 Dextrose (D50w Syringe) 50 ml Q15M PRN IV DECREASED GLUCOSE; Start 06/15/16 at 22:30 Glucagon (Glucagen) 1 mg Q15M PRN IM DECREASED GLUCOSE; Start 06/15/16 at 22:30 Glucose (Glutose) 15 gm Q15M PRN BUCCAL DECREASED GLUCOSE; Start 06/15/16 at 22 :30 Docusate Sodium (Colace) 100 mg BID PO Last administered on 06/23/16 09:22; Admin Dose 100 MG; Start 06/15/16 at 22:00 Hydrochlorothiazide (Hydrochlorothiazide) 12.5 mg DAILY PO Last administered on 06/24/16 08:59; Admin Dose 12.5 MG; Start 06/16/16 at 09:00 Losartan Potassium (Cozaar) 50 mg DAILY PO Last administered on 06/23/16 09:23 ; Admin Dose 50 MG; Start 06/16/16 at 09:00 Metoprolol Succinate (Toprol Xl) 25 mg BID PO Last administered on 06/23/16 20: 10; Admin Dose 25 MG; Start 06/15/16 at 22:30 Naloxone HCl (Narcan) 0.2 mg Q2M PRN IV DECREASED REPIRATORY RATE; Start at 22:30 Ondansetron HCl (Zofran Inj) 4 mg Q6H PRN IV NAUSEA AND/OR VOMITING; Start at 22:30 Oxycodone/ Acetaminophen (Percocet (5/ 325)) 1 tab Q4H PRN PO PAIN Last administered on 06/24/16 07:15; Admin Dose 1 TAB; Start 06/15/16 at 22:30 Oxycodone/ Acetaminophen (Percocet (5/ 325)) 2 tab Q3H PRN PO PAIN Last administered on 06/23/16 09:29; Admin Dose 2 TAB; Start 06/15/16 at 22:30 Pantoprazole (Protonix Tab) 40 mg DAILY@06 PO Last administered on 06/24/16 05: 15; Admin Dose 40 MG; Start 06/16/16 at 06:00 Prochlorperazine (Compazine) 10 mg Q4H PRN PO NAUSEA AND/OR VOMITING; Start at 22:30 Senna (Senokot) 1 tab HS PO Last administered on 06/21/16 20:36; Admin Dose 1 TAB; Start 06/16/16 at 21:00 Acetaminophen (Tylenol Tab) 650 mg Q4H PRN PO PAIN AND OR ELEVATED TEMP; Start 06/15/16 at 23:30 Bisacodyl (Dulcolax Supp) 10 mg DAILY PRN [place] CONSTIPATION; Start 06/15/16 at 23 :30 Magnesium Hydroxide (Milk Of Mag) 30 ml BID PRN PO CONSTIPATION; Start at 23:30 Lactulose (Enulose) 10 gm DAILY PRN PO CONSTIPATION; Start 06/15/16 at 23:30 Insulin Glargine (Lantus) 12 unit Q12 SC Last administered on 06/24/16 09:04; Admin Dose 12 UNIT; Start 06/20/16 at 21:00; Status Future hold Assessment/Plan Additional Assessment/Plan Rehab- Lumbar radiculopathy, spondylolisthesis, status post lumbar fusion and laminectomy. Progressing well with rehab treatment plan. Anticipate dc tomorrow History of right rotator cuff impairment. History of bilateral knee surgeries. History of partial colectomy for colon cancer. History of cerebrovascular accident. Type 2 diabetes mellitus. Hypertension. BASHIR JOY MD Jun 24, 2016 12:04
--- NOTE | 2016-06-24 13:50 | PN ---
Date/Time of Note Date/Time of Note DATE: 06/24/16 TIME: 13:49 Assessment/Plan VTE Prophylaxis VTE Prophylaxis Intervention: LMWH Lines/Catheters Urinary Cath still in place: No Assessment/Plan Problems: (1) Status post lumbar and lumbosacral fusion by anterior technique Status: Acute Comment: Continue with physical therapy (2) Diabetes mellitus type 2 in obese Status: Chronic Comment: Good control (3) Essential hypertension Status: Chronic Comment: Good control Subjective 24 Hr Interval Summary Free Text/Dictation Patient reports he is progressing with physical therapy. Constitutional: no complaints Respiratory: no complaints Cardiovascular: chest pain, no complaints Gastrointestinal: no complaints Genitourinary: no complaints Exam/Review of Systems Vital Signs Vitals Vital Signs Date Time Temp Pulse Resp B/P Pulse Ox O2 Delivery O2 Flow Rate FiO2 06/24/16 08:10 98.5 63 18 113/61 96 06/23/16 08:00 Room Air Intake and Output 06/23/16 06/23/16 06/24/16 15:00 23:00 07:00 Intake Total 650 ml 500 ml Output Total 800 ml 700 ml Balance -150 ml -200 ml Exam Constitutional: alert, oriented Neck: non-tender, supple Respiratory: clear to auscultation, normal air movement Cardiovascular: nl pulses, regular rate and rhythm Results Result Diagram: 06/21/162009 Results 24 hrs Laboratory Tests Test 06/23/16 17:01 06/23/16 20:06 06/24/16 07:30 06/24/16 12:09 Bedside Glucose 103 163 119 116 Medications Medications Current Medications Diagnostic Test (Pha) (Accucheck) 1 ea 02 XX Last administered on 06/18/16 01: 31; Admin Dose 1 EA; Start 06/16/16 at 02:00 Atorvastatin Calcium (Lipitor) 40 mg DAILY@21 PO Last administered on 06/23/16 20:07; Admin Dose 40 MG; Start 06/15/16 at 22:00 Miscellaneous Information 1 ea NOTE XX ; Start 06/15/16 at 22:30 Glucose (Glutose) 15 gm Q15M PRN PO DECREASED GLUCOSE; Start 06/15/16 at 22:30 Glucose (Glutose) 22.5 gm Q15M PRN PO DECREASED GLUCOSE; Start 06/15/16 at 22: 30 Dextrose (D50w Syringe) 25 ml Q15M PRN IV DECREASED GLUCOSE; Start 06/15/16 at 22:30 Dextrose (D50w Syringe) 50 ml Q15M PRN IV DECREASED GLUCOSE; Start 06/15/16 at 22:30 Glucagon (Glucagen) 1 mg Q15M PRN IM DECREASED GLUCOSE; Start 06/15/16 at 22:30 Glucose (Glutose) 15 gm Q15M PRN BUCCAL DECREASED GLUCOSE; Start 06/15/16 at 22 :30 Docusate Sodium (Colace) 100 mg BID PO Last administered on 06/23/16 09:22; Admin Dose 100 MG; Start 06/15/16 at 22:00 Hydrochlorothiazide (Hydrochlorothiazide) 12.5 mg DAILY PO Last administered on 06/24/16 08:59; Admin Dose 12.5 MG; Start 06/16/16 at 09:00 Losartan Potassium (Cozaar) 50 mg DAILY PO Last administered on 06/23/16 09:23 ; Admin Dose 50 MG; Start 06/16/16 at 09:00 Metoprolol Succinate (Toprol Xl) 25 mg BID PO Last administered on 06/23/16 20: 10; Admin Dose 25 MG; Start 06/15/16 at 22:30 Naloxone HCl (Narcan) 0.2 mg Q2M PRN IV DECREASED REPIRATORY RATE; Start at 22:30 Ondansetron HCl (Zofran Inj) 4 mg Q6H PRN IV NAUSEA AND/OR VOMITING; Start at 22:30 Oxycodone/ Acetaminophen (Percocet (5/ 325)) 1 tab Q4H PRN PO PAIN Last administered on 06/24/16 07:15; Admin Dose 1 TAB; Start 06/15/16 at 22:30 Oxycodone/ Acetaminophen (Percocet (5/ 325)) 2 tab Q3H PRN PO PAIN Last administered on 06/24/16 12:34; Admin Dose 2 TAB; Start 06/15/16 at 22:30 Pantoprazole (Protonix Tab) 40 mg DAILY@06 PO Last administered on 06/24/16 05: 15; Admin Dose 40 MG; Start 06/16/16 at 06:00 Prochlorperazine (Compazine) 10 mg Q4H PRN PO NAUSEA AND/OR VOMITING; Start at 22:30 Senna (Senokot) 1 tab HS PO Last administered on 06/21/16 20:36; Admin Dose 1 TAB; Start 06/16/16 at 21:00 Acetaminophen (Tylenol Tab) 650 mg Q4H PRN PO PAIN AND OR ELEVATED TEMP; Start 06/15/16 at 23:30 Bisacodyl (Dulcolax Supp) 10 mg DAILY PRN [place] CONSTIPATION; Start 06/15/16 at 23 :30 Magnesium Hydroxide (Milk Of Mag) 30 ml BID PRN PO CONSTIPATION; Start at 23:30 Lactulose (Enulose) 10 gm DAILY PRN PO CONSTIPATION; Start 06/15/16 at 23:30 Insulin Glargine (Lantus) 12 unit Q12 SC Last administered on 06/24/16 09:04; Admin Dose 12 UNIT; Start 06/20/16 at 21:00; Status Future hold TORRES KEY MD Jun 24, 2016 13:50
[2016-06-24 19:49] VITALS: BP 125/58; RESP 18
[2016-06-24] MEDS: ATORVASTATIN 40 MG TAB PO SCH (20:13)
[2016-06-24] MEDS: SENNA TAB PO SCH (20:14)
[2016-06-25] MEDS: OXYCODONE/ACETAMINOPHEN (5/325) TAB PO PRN ×3 (01:56→10:43)
[2016-06-25] MEDS: ACCUCHECK AT 2AM (Patients on SS coverage) XX SCH (02:00)
[2016-06-25] MEDS: PANTOPRAZOLE (EC) 40 MG TAB PO SCH (06:22)
[2016-06-25 07:30] VITALS: BP 109/64; RESP 18
[2016-06-25] MEDS: Insulin NOVOLOG SS MODERATE Algorithm (SS with meals and bedtime) SC SCH ×2 (07:35→12:00)
[2016-06-25] MEDS: DOCUSATE SODIUM 100 MG CAP PO SCH (07:51)
[2016-06-25] MEDS: metFORMIN 500 MG TAB PO SCH (07:52)
[2016-06-25] MEDS: INSULIN ASPART [NOVOLOG] 3 ML PEN SC SCH ×2 (07:53→12:23)
[2016-06-25] MEDS: INSULIN GLARGINE [LANtus] 3 ML PEN SC SCH (07:54)
[2016-06-25] MEDS: HYDROCHLOROTHIAZIDE 12.5 MG CAP PO SCH (07:55)
[2016-06-25] MEDS: METOPROLOL (XL) 25 MG TAB PO SCH (07:55)
[2016-06-25] MEDS: LOSARTAN 50 MG TAB PO SCH (07:56)
== END 2016-06-25 15:52 | disposition home or self-care (01) | DRG 552 ==
LOC: VRC 21:58
PROVIDERS: ADMIT Physical Medicine & Rehabilitation; ATTEND Internal Medicine
DX: M43.16 Spondylolisthesis, lumbar region (principal); E11.65 Type 2 diabetes mellitus with hyperglycemia; I10 Essential (primary) hypertension; M51.16 Intervertebral disc disorders with radiculopathy, lumbar region; G89.18 Other acute postprocedural pain; Z86.73 Personal history of transient ischemic attack (TIA), and cerebral infarction without residual deficits; Z98.1 Arthrodesis status; Z85.038 Personal history of other malignant neoplasm of large intestine; K21.9 Gastro-esophageal reflux disease without esophagitis; Z74.09 Other reduced mobility
CPT/HCPCS: 80053; 81003; 82947; 82962; 85025; 87081; 87086; 90686; 95852; 97110; 97112; 97116; 97150; 97163; 97167; 97530; 97535; J1815